=== PATIENT | male | born 1970 | race Caucasian/White ===

== ENCOUNTER 2017-10-20 21:13 | Emergency (ER) | payer BC, MEDICAID, SELFPAY ==
[2017-10-20 21:14] VITALS: BP 102/67; PULSE 114; RESP 24; TEMP 38.7; O2SAT 95; BMI 24.6
--- NOTE | 2017-10-20 22:49 | ED.RN ---
CALLED FOR PT X3. UNABLE TO LOCATE IN THE DEPARTMENT OR OUTSIDE.
== END 2017-10-20 22:49 | disposition left against medical advice (07) ==
LOC: ED 23:40
PROVIDERS: Emergency Provider Emergency Medicine; Family Provider Family Medicine
DX: R11.2 Nausea with vomiting, unspecified (principal)

== ENCOUNTER 2017-10-31 01:01 | Emergency (ER) | payer SELFPAY ==
[2017-10-31 01:02] VITALS: BP 113/60; PULSE 96; RESP 20; TEMP 36.8; O2SAT 99; BMI 24.7
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
[2017-10-31] MEDS: HYDROcodone Bitartrate/Apap 5/325 Tablet PO ×2 (01:19→02:14)
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
[2017-10-31 02:17] VITALS: BP 110/60; PULSE 78; RESP 18
== END 2017-10-31 02:18 | disposition home or self-care (01) ==
PROVIDERS: Emergency Provider Emergency Medicine
DX: S00.83XA Contusion of other part of head, initial encounter (principal); S20.211A Contusion of right front wall of thorax, initial encounter; Z72.0 Tobacco use; Y04.2XXA Assault by strike against or bumped into by another person, initial encounter; Y93.89 Activity, other specified; Y92.89 Other specified places as the place of occurrence of the external cause; Y99.8 Other external cause status
CPT/HCPCS: 70450; 71101; 72040; 99283

== ENCOUNTER → 2019-06-19 10:57 | Outpatient (CLI) | payer MEDICAID, SELFPAY ==
--- NOTE | 2019-06-19 17:56 | STRESSREP ---
Stress Test Report Treadmill EKG: Resting EKG: Normal sinus rhythm, normal axis, normal intervals, no evidence of previous myocardial infarction. Treadmill EKG: The patient exercised according to Bebo protocol for 12 minutes and 0 seconds achieving a maximum workload of 13.70 METS. The resting heart rate was 74 beats a minute and jim to max of 166 beats a minute which represents 95% of the maximal age picked at heart rate. Resting blood pressure is 110/80 and jim to max of 142/70. Test was terminated due to the attainment target heart rate. During exercise the patient's heart rate increased as expected. Patient had no dynamic EKG changes to suggest ischemia. No arrhythmias noted. Conclusions normal adequate treadmill EKG. Negative for ischemia by EKG criteria. No anginal symptoms noted. No arrhythmias noted. Average exercise capacity for age. Appropriate blood pressure response to exercise. Test terminated due to the attainment of target heart rate. Patient tolerated the procedure well. No complications.
== END ==
PROVIDERS: Referring Provider Nurse Practitioner Primary Care; Visit Provider Nurse Practitioner Primary Care
DX: R07.9 Chest pain, unspecified (principal); R06.02 Shortness of breath
CPT/HCPCS: 93017

== ENCOUNTER 2020-02-18 16:42 | Emergency (ER) | payer MEDICAID, SELFPAY ==
[2020-02-18 16:43] VITALS: BP 109/62; PULSE 70; PULSE 75; RESP 18; TEMP 36.1; O2SAT 97; BMI 25.2
--- NOTE | 2020-02-18 17:14 | ED.VIS.GEN ---
History of Present Illness Chief Complaint: Upper Extremity Injury Informant: Patient Narrative: Patient is a 49-year-old previously healthy male who presents to the emergency department for acute on chronic exacerbation of his right shoulder pain. Has been going on for multiple years. He has an appointment with orthopedic surgery at the end of the month but he states that the pain was just getting worse. He has been taking Tylenol for this which has not been giving him any relief. Denies any trauma or inciting event which spurred the new onset. It has been present over the past 2 days. The pain is on the right side of his neck and goes into his right shoulder. He does occasionally get shooting pain down the right arm to the elbow. Denies any neck pain. Moving the arm makes his symptoms worse. He was given a brace by his previous doctor which he has been wearing. He states he has previously gotten cortisone shots in the shoulder as well. Denies any loss of sensation in the hand or arm. He denies any joint swelling. No fevers or chills. No overlying skin changes. Denies any systemic symptoms. No chest pain or shortness of breath. He states he previously has had imaging done of the shoulder. Past Medical History - Allergies and Home Meds Allergies/Adverse Reactions: Allergies Penicillins Allergy (Verified 02/18/20 16:42) Unknown Primary Care Physician: Care Physician,No Primary [Primary Care Provider] - Prior records reviewed: Yes Past Medical History: None Smoking Status: Current every day smoker Alcohol: None Drugs: None Review of Systems All systems negative except as indicated General: Denies: Chills, Fever, Sweats Eyes: Denies: Visual changes - bilaterally, Diplopia ENT: Denies: Rhinorrhea, Sore throat Cardiovascular: Denies: Chest pain, Palpitations Respiratory: Denies: Dyspnea, Cough, Dyspnea on exertion Gastrointestinal: Denies: Abdominal pain, Nausea, Vomiting Genitourinary: Denies: Dysuria, Hematuria, Frequency Musculoskeletal: Reports: Neck pain - Right-sided, Extremity Pain - Right shoulder. Denies: Back pain Skin: Denies: Rash, Wounds Neurological: Denies: Headache, Weakness, Numbness Physical Exam Vital Signs/Narrative: Vital Signs Temp Pulse Resp BP Pulse Ox 02/18/20 16:43 96.9 F L 75 18 109/62 97 Inital Vital Signs reviewed: Yes General: Well nourished, Well developed, No Acute Distress Head: Normocephalic, Atraumatic Eyes: Perrl, EOMI ENT: Moist mucous membranes, No rhinorrhea Neck: Supple, Nontender Cardiovascular: Regular rate, Regular rhythm, No murmurs Respiratory: No distress, CTA bilaterally, Chest nontender Abdomen: Soft, Nontender, Nondistended Back: Nontender, Normal Inspection Extremities: No edema, - - Right arm has tight right trapezius muscle. He does have significant pain with light palpation over the muscle. Also pain over the anterior lateral shoulder. 2+ radial pulse. Good pediatric immunologist strength bilaterally. Has pain when abducting the arm past 90 degrees. Able to lower the shoulder slowly. No pain with compression of neck. Skin: Normal color, No rash Neurological: Alert, Oriented x3, Normal Strength, Normal Sensation Psychological: Normal affect, Normal Mood Diagnostic/Tx/Re-eval - Medical Decision Making Patient presents to the emergency department for nontraumatic acute on chronic right shoulder pain. He is neurovascularly intact. No joint effusion. No concern for septic arthritis. Vital signs within normal limits upon arrival. Will recommend symptomatic treatment until he can follow-up with his orthopedic surgeon later this month. Will prescribe Flexeril and Naprosyn to take along with his Tylenol. We will give a dose of Toradol here in the ED. At this time will discharge home in stable condition. He was warned that the Flexeril can make him tired and should not operate heavy machinery while on this. He understands and is agreeable with this plan. ED Disposition - Plan for ED Patient: Disposition: Home or Assisted Living Diagnosis: Chronic right shoulder pain Instructions: ED Shoulder Pain Uncertain Cause Prescriptions: cycloBENZAPRine HCl [Flexeril] 10 mg PO TID PRN 4 Days #12 tab PRN Reason: Muscle Spasm Transmission Status: Pending to [id number] Naproxen [Naprosyn] 500 mg PO BID PRN #40 tab Transmission Status: Pending to [id number] Referrals: Care Physician,No Primary [Primary Care Provider] - Zana Urias III, MD [STAFF PHYSICIAN] - 3-5 Days if not improving
[2020-02-18] MEDS: Ketorolac 30 MG/ML Syringe IM (18:16)
== END 2020-02-18 18:22 | disposition home or self-care (01) ==
LOC: ED 17:20
PROVIDERS: Emergency Provider Emergency Medicine
DX: G89.29 Other chronic pain (principal); M25.511 Pain in right shoulder; F17.200 Nicotine dependence, unspecified, uncomplicated
CPT/HCPCS: 96372; 99283

== ENCOUNTER 2020-10-28 14:35 | Emergency (ER) | payer MEDICAID, SELFPAY ==
[2020-10-28 14:36] VITALS: BP 120/65; PULSE 93; RESP 18; TEMP 36.7; O2SAT 100; BMI 25.1
--- NOTE | 2020-10-28 14:47 | ED.DCSUM_ITS ---
History of Present Illness Chief Complaint: Upper Extremity Injury Informant: Patient Narrative: 50-year-old male with history of right shoulder pain previously presenting for evaluation of right shoulder pain. Apparently this is acute on chronic issue. Patient had previously been to the emergency room and had images and reports the history of a Luigi-Sachs lesion. He was supposed to follow-up previously with orthopedics he went to his primary care doctor who put him through health and physical education teacher apy and gave him a referral to orthopedics given that he was not improving significantly. Yesterday he was throwing a softball with his daughter and felt a pop and now has pain in the right shoulder again. He denies paresthesias. He points to his deltoid on the right. Past Medical History - Allergies and Home Meds Allergies/Adverse Reactions: Allergies Penicillins Allergy (Verified 10/28/20 14:38) Unknown Primary Care Physician: Care Physician,No Primary [NON-STAFF] - Prior records reviewed: Yes Past Medical History: - - Denies significant medical history Surgical History: noncontributory Lives: Spouse/ Significant Other Smoking Status: Current every day smoker Alcohol: None Drugs: None Review of Systems General: Denies: Chills, Fever, Sweats Eyes: Denies: Visual changes - bilaterally, Diplopia ENT: Denies: Rhinorrhea, Sore throat Cardiovascular: Denies: Chest pain, Palpitations Respiratory: Denies: Dyspnea, Cough, Dyspnea on exertion Gastrointestinal: Denies: Abdominal pain, Nausea, Vomiting, Diarrhea, Melena, Hematochezia Genitourinary: Denies: Dysuria, Hematuria, Frequency Musculoskeletal: Reports: Extremity Pain - Right shoulder pain Skin: Denies: Rash, Wounds Neurological: Denies: Headache, Weakness, Numbness Psych: Denies: Depression, Anxiety, Suicidal thoughts, Suicidal ideations, -, - Physical Exam Vital Signs/Narrative: Vital Signs Temp Pulse Resp BP Pulse Ox 10/28/20 14:36 98.0 F 93 18 120/65 100 Inital Vital Signs reviewed: Yes General: Well nourished, No Acute Distress Head: Normocephalic, Atraumatic Eyes: Perrl, EOMI ENT: Moist mucous membranes, No rhinorrhea Cardiovascular: Regular rate, Regular rhythm Respiratory: No distress, CTA bilaterally Back: Nontender, Normal Inspection Extremities: - - To palpation over the right deltoid superiorly. There is no obvious deformity of the right shoulder. Patient is neurovascularly intact distally. Limited exam because patient does not want to move his arm secondary to pain. Skin: Normal color, Trauma Neurological: Alert, Oriented x3 Psychological: Normal affect, Normal Mood Diagnostic/Tx/Re-eval Clinical Impression(s) from Imaging Studies Shoulder X-Ray 10/28/20 14:50 IMPRESSION: Normal x-ray examination of the shoulder. Electronically Signed: Silvestre Burgess MD at 15:11 EDT , Service support , - Medical Decision Making 10-year-old male presenting with right shoulder pain. He has limited range of motion secondary to pain. He did not appear to be dislocated. He was given a shot of Toradol IM and I did obtain 2 views of the right shoulder which showed no acute bony process as interpreted by myself and radiology does agree. Patient counseled to follow-up with his orthopedic surgeon. He is counseled on alternating Profen and Tylenol. A shoulder as needed. Patient discharged home in stable condition Impression: 1. Right shoulder strain ED Disposition - Plan for ED Patient: Disposition: Home or Assisted Living Instructions: ED Shoulder Sprain Referrals: Care Physician,No Primary [NON-STAFF] -
--- NOTE | 2020-10-28 14:50 | RAD_ITS ---
STUDY: X-RAY - RIGHT SHOULDER REASON FOR EXAM: Male, 50 years old. Right shoulder pain TECHNIQUE: 2 view(s) of the shoulder. COMPARISON: None. FINDINGS: Normal glenohumeral articulation. Normal acromioclavicular joint. Normal acromion. Normal humeral head and visualized proximal humerus. The soft tissue structures are unremarkable. Normal visualized pulmonary apex. RAD/Shoulder min 2 Views IMPRESSION: Normal x-ray examination of the shoulder. Electronically Signed: Silvestre Burgess MD at 15:11 EDT , Service support ,
[2020-10-28] MEDS: Ketorolac 15 MG/ML Vial IM (14:52)
== END 2020-10-28 16:06 | disposition home or self-care (01) ==
PROVIDERS: Emergency Provider Student in an Organized Health Care Education/Training Program; PCP Physician Assistant
DX: S46.911A Strain of unspecified muscle, fascia and tendon at shoulder and upper arm level, right arm, initial encounter (principal); F17.200 Nicotine dependence, unspecified, uncomplicated; X50.3XXA Overexertion from repetitive movements, initial encounter; Y93.64 Activity, baseball; Y92.89 Other specified places as the place of occurrence of the external cause; Y99.8 Other external cause status
CPT/HCPCS: 73030; 96372; 99282

== ENCOUNTER 2020-11-27 10:22 | Outpatient (RCR) | payer MEDICAID, SELFPAY | END 2021-01-01 23:59 | LOC: IMMUN 10:22 | PROVIDERS: PCP Physician Assistant; Referring Provider Family Medicine; Visit Provider Family Medicine | DX: Z23 Encounter for immunization (principal) | CPT/HCPCS: 0001A; 91300 ==

== ENCOUNTER 2021-01-16 20:51 | Emergency (ER) | payer MEDICAID, SELFPAY ==
[2021-01-16 20:52] VITALS: BP 120/71; PULSE 92; RESP 16; TEMP 36.6; O2SAT 99; BMI 24.9
--- NOTE | 2021-01-16 21:24 | EDS_ITS ---
HPI History of Present Illness Chief Complaint: Allergic Reaction Informant: patient Narrative Narrative: 50-year-old male presents the emergency department following a sting of by an insect on his right proximal leg. He states this happened around 1600 hrs. He states that he had a white spot where he was stung about 30 minutes later it turned red. Now he notes a burning sensation going down his leg and he feels dizzy. He has not taken anything other than a little Bee sting stack to the envenomation site. No hives or shortness of breath. [facility] Medical History (Updated 01/16/21 @ 21:[address] Ishmael Solis DO) Knee meniscus pain Allergy/AdvReac Type Severity Reaction Status Date / Time Penicillins Allergy Unknown Verified 01/16/21 20:52 Surgical History (Updated 01/16/21 @ 21:[address] Ishmael Solis DO) H/O knee surgery History of surgery on arm Social History (Updated 01/16/21 @ 21:[address] Ishmael Solis DO) Smoking Status: Current every day smoker tobacco type: cigarettes substance use type: does not use ROS ROS ED Review of Systems ROS Unobtainable: other Constitutional Constitutional ED: Reports other Details: Dizziness ; Denies chills or weight loss Eyes Eyes: Denies change in vision or diplopia ENT ENT ED: Denies ear pain, rhinorrhea or sore throat Cardiovascular Cardiovascular: Denies chest pain, orthopnea, palpitations or racing heartbeat Respiratory/Chest Respiratory/Chest: Denies cough, dyspnea or orthopnea Gastrointestinal Gastrointestinal: Denies abdominal pain, diarrhea, nausea or vomiting Genitourinary Genitourinary ED: Denies dysuria, hematuria or urinary frequency Musculoskeletal Musculoskeletal: Reports other Details: Right leg pain ; Denies arthralgias or myalgias Integumentary Reports other Details: Bee sting site ; Denies abscess or rash Neurologic Neurologic: Denies headache(s) or weakness Psychiatric Psychiatric: Denies anxiety, depression, suicidal ideation or suicidal thoughts Endocrine Endocrinology: Denies polydipsia, polyphagia or polyuria Allergic/Immunologic Allergic/Immunologic ED: Denies mouth swelling, tongue swelling or urticaria EXAM Physical Exam Const Vital Signs: 01/16/21 20:52 Temperature 97.9 F Temperature Source Temporal Pulse Rate 92 Respiratory Rate 16 Blood Pressure 120/71 Blood Pressure Mean 87 Pulse Ox 99 Oxygen Delivery Method Room Air Positive well nourished and well developed General Appearance ED: well developed HEENT Reports normocephalic, head/scalp atraumatic and moist mucous membranes Eyes PERRL and EOMs intact bilaterally Neck no lymphadenopathy, supple and no JVD Resp normal respiratory effort and clear to auscultation bilaterally Cardio regular rate, regular rhythm and no murmurs GI normal to inspection, nondistended, normoactive bowel sounds and non-tender Palpation: soft Back/Spine no CVA tenderness and normal ROM Extremity Extremity Narrative: Tenderness medial proximal right leg. At the site of the envenomation. There is some mild erythema. General Extremety ED: Yes tenderness; Negative for edema General Extremity: Negative for edema Neuro oriented x3 and CN's II-XII intact bilaterally Sensorium / Orientation: alert Motor Exam: strength 5/5 throughout Psych mental status grossly normal Mood & Affect: Negative for depressed or tearful Skin no rashes or lesions noted Skin Narrative: No hives MDM MDM MDM Narrative Medical decision making narrative: Patient will be given a dose of Benadryl and given a dose of Kenalog. Continued Benadryl at home. Return if worsening or concerns. Discharge Plan Triage Chief Complaint: Allergic Reaction ED Provider: Ishmael Solis Dx/Rx/DC Orders Clinical Impression: Accidental insect sting Instructions: ED Insect Sting, Local Reaction Primary Care Provider: Patel Rene Referrals: Patel Rene PA [Primary Care Provider] - As Needed Activity Restrictions/Additional Instructions: Benadryl 25 mg every 6 hours until reaction is resolved Disposition Disposition: Home, Self Care
[2021-01-16] MEDS: Triamcinolone Acetonide 40 MG/ML Vial 80 MG IM (21:40)
[2021-01-16] MEDS: DiphenhydrAMINE 25 MG Capsule PO (21:40)
[2021-01-16 22:07] VITALS: BP 110/73; PULSE 83; RESP 15; O2SAT 96
== END 2021-01-16 22:09 | disposition home or self-care (01) ==
LOC: ED 21:34
PROVIDERS: Emergency Provider Emergency Medicine; PCP Physician Assistant
DX: T63.441A Toxic effect of venom of bees, accidental (unintentional), initial encounter (principal); R42 Dizziness and giddiness; F17.210 Nicotine dependence, cigarettes, uncomplicated
CPT/HCPCS: 96372; 99282

== ENCOUNTER 2021-03-01 21:39 | Emergency (ER) | payer MEDICAID, SELFPAY ==
[2021-03-01 21:39] VITALS: BP 111/80; PULSE 78; RESP 18; TEMP 36.7; O2SAT 98; BMI 24.9
--- NOTE | 2021-03-01 21:43 | ED.RN ---
UPDATED TARA SURVEILLANCE OPERATOR NURSE WITH DATA, TRIAGE NORMAL.PT OUTSIDE LIMITS.
[2021-03-01 21:51] LABS: Bedside Glucose 90 mg/dL (70-110)
--- NOTE | 2021-03-01 22:23 | EKG12_ITS ---
Test Reason : DIZZINESS Blood Pressure : / mmHG Vent. Rate : 060 BPM Atrial Rate : 060 BPM P-R Int : 130 ms QRS Dur : 090 ms QT Int : 420 ms P-R-T Axes : 068 070 060 degrees QTc Int : 420 ms Normal sinus rhythm Normal ECG Confirmed by YVONNE FORREST, MERT ([id number]), editorial cartoonist HAILEY MAYA ([id number]) on 03/04/2021 10:24:29 AM Referred By: EMY Confirmed By:MERT RUSSELL MD
[2021-03-01 22:29] VITALS: BP 114/83; PULSE 65; RESP 22
[2021-03-01 22:43] VITALS: BP 114/83
[2021-03-01 22:51] LABS: Absolute Lymphocyte Count 4.04 X10^3/uL (0.83-4.51); Absolute Neutrophil Count 6.6 X10^3/uL (2.0-7.7); Basophil# 0.07 X10^3/uL; Basophil% 0.6 % (0-1); Eosinophil# 0.11 X10^3/uL; Eosinophils% 0.9 % (0-5); Hematocrit 46.6 % (40-54); Hemoglobin 15.3 g/dL (13.0-16.5); Lymphocyte # 4.04 X10^3/ul (0.83-4.51); Lymphocyte % 34.8 % (19-41); Mean Corp Hgb Conc 32.8 g/dL (32-36); Mean Corpuscular Hgb 30.4 pg (27.0-32.0); Mean Corpuscular Volume 92.6 fL (80-94); Mean Platelet Vol. 10.2 fl (6.2-12.0); Monocyte# 0.73 X10^3/uL; Monocyte% 6.3 % (0-10); NRBC Flagged by Analyzer 0 % (0-5); Neutrophil # 6.64 X10^3/uL (2.7-7.7); Neutrophil % 57.1 % (47-70); Platelet Count 262 K/mm3 (150-450); RBC Distribution Width CV 12.9 % (11.6-14.6); RBC Distribution Width SD 43.7 fl (35.1-43.9); Red Blood Count 5.03 M/mm3 (4.6-6.2); White Blood Count 11.6 K/mm3 (4.4-11.0)
--- NOTE | 2021-03-01 22:55 | RAD_ITS ---
EXAM: XR CHEST, 1 VIEW : 1970 CLINICAL INDICATION: Stroke TECHNIQUE: Frontal view of the chest. This report was created using C-Note report generation technology. COMPARISON: 04/05/2011 FINDINGS: LUNGS AND PLEURAL SPACES: Unremarkable. No consolidation or edema. No pneumothorax. No effusion. HEART: Unremarkable. Cardiac silhouette not enlarged. MEDIASTINUM: Central airways and mediastinal contour are unremarkable. BONES/JOINTS: Unremarkable. SOFT TISSUES: Unremarkable. RAD/Chest 1 View (Portable) IMPRESSION: No radiographic evidence of acute cardiopulmonary disease. at 2329 Reported and signed by: Chay Funk MD Electronically Signed: Chay Funk MD at 23:27 EDT Tel , Service support ,
[2021-03-01 22:56] VITALS: BP 107/74; PULSE 68; RESP 16
--- NOTE | 2021-03-01 22:59 | ED.RN ---
discontinue NIH's per dr. senior
[2021-03-01 23:00] VITALS: BP 107/74
[2021-03-01 23:01] LABS: Prothrombin Time (Protime)PT. 12.6 SECONDS (11.7-14.9)
[2021-03-01 23:17] LABS: Anion Gap 4 (5-15); BUN 15 mg/dL (7-18); BUN/Creat Ratio 12.6 RATIO (10-20); Calcium,Total 8.5 mg/dL (8.5-10.1); Chloride 106 mmol/L (98-107); Creatinine, Serum 1.19 mg/dL (0.70-1.30); EST Glomerular Filtration Rate 69 mL/min (>60); Est Glom Filt Rate - Afr Amer 84 mL/min (>60); Estimated Creatinine Clearance 80.85 ml/min; Glucose 79 mg/dL (74-106); Sodium Level 140 mmol/L (136-145)
--- NOTE | 2021-03-02 | EX.ED.DYSGE1 ---
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 Duration was 2 to 5 minutes. He had several episodes. He denied vomiting. He did complain of slight headache this morning. He denies ringing in his ears or decreased hearing. Denies trouble with speech or swallowing. He denies cardiac respiratory symptoms. He denies black or maroon-colored stool. He denies urinary symptoms. He denies paresthesia, anesthesia medics. He denies trouble walking. He has not noticed that he has been walking to one side. He denies problems with coordination. Prior similar symptoms: No Recent Illness/Hospitalization: No [facility] Medical History Knee meniscus pain Home Medications NK 03/01/21 [History Last Taken Unknown] Allergy/AdvReac Type Severity Reaction Status Date / Time Penicillins Allergy Unknown Verified 03/01/21 21:43 Surgical History H/O knee surgery History of surgery on arm Social History (Updated 03/02/21 @ 00:[address] Gabino Powell MD) household members: spouse and children Smoking Status: Current every day smoker tobacco type: cigarettes alcohol intake: current alcohol intake frequency: other substance use type: does not use ROS ROS ED Constitutional Constitutional ED: Denies chills, fever(s), subjective or sweats Eyes Eyes: Reports change in vision bilateral; Denies blurry vision or diplopia ENT ENT ED: Denies ear pain, rhinorrhea or sore throat Cardiovascular Cardiovascular: Denies chest pain, palpitations or racing heartbeat Respiratory/Chest Respiratory/Chest: Denies cough, dyspnea or dyspnea on exertion Gastrointestinal Gastrointestinal: Reports nausea; Denies abdominal pain, diarrhea or vomiting Genitourinary Genitourinary ED: Denies dysuria, hematuria or urinary frequency Musculoskeletal Musculoskeletal: Denies arthralgias, back pain, myalgias or neck pain Integumentary Denies abscess, Abrasions or rash Neurologic Neurologic: Reports headache(s); Denies paresthesias or weakness Psychiatric Psychiatric: Denies depression EXAM Physical Exam Const Vital Signs: 03/01/21 21:39 03/01/21 22:29 03/01/21 22:43 Temperature 98.0 F Temperature Source Temporal Pulse Rate 78 65 Respiratory Rate 18 22 H Blood Pressure 111/80 114/83 H 114/83 H Blood Pressure Mean 90 93 93 Pulse Ox 98 Oxygen Delivery Method Room Air 03/01/21 22:56 03/01/21 23:00 Temperature Temperature Source Pulse Rate 68 Respiratory Rate 16 Blood Pressure 107/74 107/74 Blood Pressure Mean 85 85 Pulse Ox Oxygen Delivery Method Positive well nourished and well developed General Appearance ED: well developed and NAD HEENT Reports TM's clear and moist mucous membranes HEENT Narrative: Head is atraumatic normocephalic. TMs are normal. External auditory canal normal. Posterior pharynx no erythema or exudate. Uvula is midline. Tympanic Membrane ED: Yes TM's clear Eyes PERRL and EOMs intact bilaterally General Eye ED: Negative for pale conjunctiva or scleral icterus Neck no lymphadenopathy, supple and no JVD Chest Wall inspection of chest normal Resp normal respiratory effort and clear to auscultation bilaterally Cardio regular rate, regular rhythm, S1 normal heart sound, S2 normal heart sound and no murmurs GI normal to inspection, nondistended, normoactive bowel sounds and non-tender Palpation: soft Back/Spine no CVA tenderness Extremity normal to inspection General Extremety ED: Negative for edema or tenderness General Extremity: Negative for edema Neuro oriented x3, CN's II-XII intact bilaterally and no sensory deficits noted Neuro Narrative: The eye askew test was negative. The hint test was negative. There is no dysmetria. Gait was normal. Montserrat-Hallpike maneuver was positive left greater than right. Nystagmus is noted when his head was to the right. Sensorium / Orientation: alert Motor Exam: strength 5/5 throughout Psych mental status grossly normal Skin no rashes or lesions noted and no wounds MDM MDM MDM Narrative Medical decision making narrative: With transient episodes and positive Montserrat-Hallpike maneuver with normal neuro exam Silas maneuver was performed. Patient had symptoms of the right and had nystagmus noted when he was to the right. His nystagmus and symptoms resolved. Lab Data Attestation: I reviewed the patient's lab results. Lab results narrative: Blood work was obtained per nurse per and is unremarkable. Labs: Laboratory Results - last 24 hr 03/01/21 03/01/21 03/01/21 21:44 22:37 22:37 WBC 11.6 H RBC 5.03 Hgb 15.3 Hct 46.6 MCV 92.6 MCH 30.4 MCHC 32.8 RDW Std Deviation 43.7 RDW Coeff of Shahbaz 12.9 Plt Count 262 MPV 10.2 Immature Gran % (Auto) 0.300 Neut % (Auto) 57.1 Lymph % (Auto) 34.8 [place] % (Auto) 6.3 Eos % (Auto) 0.9 Baso % (Auto) 0.6 Absolute Neuts (auto) 6.6 Absolute Lymphs (auto) 4.04 Nucleated RBC % 0 PT 12.6 INR 1.0 Sodium Potassium Chloride Carbon Dioxide Anion Gap BUN Creatinine Estim Creat Clear Calc Est GFR (MDRD) Af Amer Est GFR (MDRD) Non-Af BUN/Creatinine Ratio Glucose Calcium POC Glucose 90 03/01/21 22:37 WBC RBC Hgb Hct MCV MCH MCHC RDW Std Deviation RDW Coeff of Shahbaz Plt Count MPV Immature Gran % (Auto) Neut % (Auto) Lymph % (Auto) [place] % (Auto) Eos % (Auto) Baso % (Auto) Absolute Neuts (auto) Absolute Lymphs (auto) Nucleated RBC % PT INR Sodium 140 Potassium 4.0 Chloride 106 Carbon Dioxide 30.0 Anion Gap 4 L BUN 15 Creatinine 1.19 Estim Creat Clear Calc 80.85 Est GFR (MDRD) Af Amer 84 Est GFR (MDRD) Non-Af 69 BUN/Creatinine Ratio 12.6 Glucose 79 Calcium 8.5 POC Glucose Radiography Diagnostic Testing: Radiology Impression Chest X-Ray 03/01/21 22:55 IMPRESSION: No radiographic evidence of acute cardiopulmonary disease. at 2329 Reported and signed by: Chay Funk MD Electronically Signed: Chay Funk MD at 23:27 EDT Tel , Service support , Discharge Plan Triage Chief Complaint: Dizziness ED Provider: Gabino Powell Dx/Rx/DC Orders Clinical Impression: Benign paroxysmal positional vertigo of left ear Instructions: ED BPV Vertigo Prescriptions: No Action NK RF: 0 Primary Care Provider: Patel Rene Referrals: Patel Rene, PA [Primary Care Provider] - As Needed Disposition Disposition: Home, Self Care
[2021-03-02 00:28] VITALS: BP 104/84; PULSE 71; RESP 18; O2SAT 98
== END 2021-03-02 00:57 | disposition home or self-care (01) ==
PROVIDERS: Emergency Provider Emergency Medicine; PCP Physician Assistant
DX: H81.12 Benign paroxysmal vertigo, left ear (principal); F17.210 Nicotine dependence, cigarettes, uncomplicated
CPT/HCPCS: 71045; 80048; 82962; 85025; 85610; 93005; 99284; A4216

== ENCOUNTER → 2021-04-24 08:03 | Outpatient (CLI) | payer OTHER, MEDICAID, SELFPAY ==
--- NOTE | 2021-04-24 09:02 | MRI_ITS ---
STUDY: MRI RIGHT SHOULDER REASON FOR EXAM: Right shoulder instability, right shoulder dislocation. TECHNIQUE: Standardized fat and water weighted pulse sequences were obtained in all 3 orthogonal planes. COMPARISON: Radiographs 10/28/2020. FINDINGS: There is supraspinatus tendinosis and a small linear intermediate grade partial-thickness tear of the articular surface of the distal posterior supraspinatus tendon (T2 coronal image 16). There is mild infraspinatus tendinosis (T2 coronal image 12) without discrete tendon tear Normal subscapularis tendon. Normal teres minor tendon. There is mild atrophy with mild partial fat replacement of the supraspinatus muscle (T2 axial image 8). Normal infraspinatus muscle. Normal subscapularis muscle. There is atrophy with partial fat replacement of the teres minor muscle (T2 sagittal images 17-28). Normal glenohumeral articulation. There is mild cystic change of the posterior aspect of the greater tuberosity. Normal biceps labral complex. Normal intracapsular long biceps tendon. Normal labrum. Normal capsulo- ligamentous complex. There is mild acromioclavicular arthrosis without substantial undersurface osteophytes (T2 sagittal images 17, 18). There is a Type II morphology (curved), with a neutral orientation. There is a small volume of subacromial-subdeltoid bursal fluid (proton-density axial images 14-18). Normal visualized coracohumeral and coracoacromial ligaments. Normal deltoid muscle. Normal trapezius muscle. MRI/Upper Ext Joint Only(Routine) IMPRESSION: Small linear partial-thickness tear and tendinosis of the supraspinatus tendon. Mild infraspinatus tendinosis. Mild atrophy of the supraspinatus muscle, and atrophy of the teres minor muscle. Mild acromioclavicular arthrosis. Mild subacromial-subdeltoid bursitis. Electronically Signed: Guillermo Tao MD at 9:25 EDT Tel , Service support ,
== END ==
PROVIDERS: PCP Physician Assistant; Referring Provider Physician Assistant; Visit Provider Physician Assistant
DX: M25.311 Other instability, right shoulder (principal)
CPT/HCPCS: 73221

== ENCOUNTER → 2021-08-09 16:30 | Day surgery (SDC) | payer OTHER, MEDICAID, SELFPAY ==
--- NOTE | 2021-08-09 16:34 | EKG12_ITS ---
Test Reason : PRE OP Blood Pressure : / mmHG Vent. Rate : 081 BPM Atrial Rate : 081 BPM P-R Int : 126 ms QRS Dur : 086 ms QT Int : 362 ms P-R-T Axes : 063 061 053 degrees QTc Int : 420 ms Normal sinus rhythm Normal ECG Confirmed by YVONNE FORREST, MERT ([id number]), legal editor HAILEY MAYA ([id number]) on 08/10/2021 8:34:13 AM Referred By: Kevan Mehta Confirmed By:MERT RUSSELL MD
[2021-08-09 17:30] LABS: Hematocrit 45.5 % (40-54); Hemoglobin 15.5 g/dL (13.0-16.5); Mean Corp Hgb Conc 34.1 g/dL (32-36); Platelet Count 284 K/mm3 (150-450); RBC Distribution Width CV 12.3 % (11.6-14.6); RBC Distribution Width SD 40.9 fl (35.1-43.9)
[2021-08-09 19:43] LABS: Anion Gap 4 (5-15); BUN 13 mg/dL (7-18); BUN/Creat Ratio 10.9 RATIO (10-20); Calcium,Total 8.8 mg/dL (8.5-10.1); Chloride 104 mmol/L (98-107); Creatinine, Serum 1.19 mg/dL (0.70-1.30); EST Glomerular Filtration Rate 69 mL/min (>60); Est Glom Filt Rate - Afr Amer 83 mL/min (>60); Glucose 74 mg/dL (74-106); Potassium 3.5 mmol/L (3.5-5.1); Sodium Level 139 mmol/L (136-145)
== END ==
PROVIDERS: Physician Assistant; PCP Physician Assistant; Referring Provider Orthopaedic Surgery; Visit Provider Orthopaedic Surgery
DX: Z01.812 Encounter for preprocedural laboratory examination (principal)
CPT/HCPCS: 36415; 80048; 85027; 93005

== ENCOUNTER 2021-10-05 16:12 | Outpatient (CLI) | payer OTHER, MEDICAID, SELFPAY ==
--- NOTE | 2021-10-05 16:16 | VDUE_ITS ---
Reason For Study: pain Right Proximal Right jugular vein is spontaneous, widely patent, phasic, with no intraluminal echogenicity noted. Right subclavian vein is spontaneous, widely patent, phasic, with no intraluminal echogenicity noted. Right Lower Arm Right radial vein is compressible. Right ulnar vein is compressible. Right Arm Right axillary vein is spontaneous, patent, phasic, competent, compressible and demonstrates augmentation. Right brachial vein is compressible. Right cephalic vein is compressible. Right basilic vein is compressible. Prelim faxed to Dr. Mehta. VL/Venous Duplex US, Unilateral Interpretation Summary No evidence for acute deep venous thrombosis[right] upper extremity with patent and compressible cephalic and basilic veins. Ordering Physician: Kevan Mehta Performed By: Luis Rodrigues RVSeveriano ?
== END 2021-10-05 23:59 | disposition home or self-care (01) ==
LOC: CVS 16:13
PROVIDERS: PCP Physician Assistant; Referring Provider Orthopaedic Surgery; Visit Provider Orthopaedic Surgery
DX: S46.011D Strain of muscle(s) and tendon(s) of the rotator cuff of right shoulder, subsequent encounter (principal); M79.601 Pain in right arm
CPT/HCPCS: 93971

== ENCOUNTER → 2022-05-27 | Outpatient (CLI) | payer OTHER, MEDICAID, SELFPAY ==
[2022-05-27 17:47] LABS: Hematocrit 49.6 % (40-54); Hemoglobin 16.2 g/dL (13.0-16.5); Mean Corp Hgb Conc 32.7 g/dL (32-36); Mean Corpuscular Hgb 30.3 pg (27.0-32.0); Mean Corpuscular Volume 92.9 fL (80-94); Mean Platelet Vol. 11.4 fl (6.2-12.0); Platelet Count 294 K/mm3 (150-450); RBC Distribution Width CV 12.6 % (11.6-14.6); RBC Distribution Width SD 43.3 fl (35.1-43.9); Red Blood Count 5.34 M/mm3 (4.6-6.2); White Blood Count 13.8 K/mm3 (4.4-11.0)
[2022-05-27 18:08] LABS: Anion Gap 4 (5-15); BUN 14 mg/dL (7-18); BUN/Creat Ratio 11.9 RATIO (10-20); Calcium,Total 8.5 mg/dL (8.5-10.1); Chloride 102 mmol/L (98-107); Creatinine, Serum 1.18 mg/dL (0.70-1.30); EST Glomerular Filtration Rate 69 mL/min (>60); Est Glom Filt Rate - Afr Amer 84 mL/min (>60); Glucose 94 mg/dL (74-106); Potassium 3.6 mmol/L (3.5-5.1); Sodium Level 136 mmol/L (136-145)
== END | disposition home or self-care (01) ==
LOC: MTLAB 16:05
PROVIDERS: PCP Physician Assistant; Referring Provider Orthopaedic Surgery; Visit Provider Orthopaedic Surgery
DX: Z01.818 Encounter for other preprocedural examination (principal); Z01.810 Encounter for preprocedural cardiovascular examination
CPT/HCPCS: 36415; 80048; 85027

== ENCOUNTER → 2023-06-09 | Outpatient (CLI) | payer OTHER, MEDICAID, SELFPAY ==
--- NOTE | 2023-06-09 17:50 | CT_ITS ---
CT RIGHT LOWER EXTREMITY CLINICAL INDICATION: DILEEP TECHNIQUE: Axial CT images of the RIGHT lower extremity was performed without IV contrast material. Coronal and sagittal reformats were provided. RADIATION DOSAGE (If Supplied By Facility): CTDIvol = ( 18.66 ) mGy, DLP = ( 1220.74 ) mGycm COMPARISON: No relevant prior comparison study available FINDINGS: Bones: The hip is well aligned. The joint space is maintained. The right hemipelvis is intact. The right knee is well aligned. There is mild medial compartment joint space narrowing. Small tricompartmental marginal osteophytes. Chondrocalcinosis at the medial and lateral compartments. Alignment at the ankle is appropriate. Os trigonum noted. Mild sclerosis and cyst formation along the middle subtalar joint. Possible fibrous coalition at this location.. Soft Tissues: The deep soft tissue structures are unremarkable. The superficial soft tissues are unremarkable without evidence of edema, hematoma, or foreign body. CT/Extremity Lower without Contra IMPRESSION: Appropriate alignment of the right hip, knee, and ankle. Mild tricompartmental degenerative change of the knee with chondrocalcinosis. Electronically Signed: Donnell Sheikh MD at 0:28 EST ,
== END | disposition home or self-care (01) ==
LOC: CT 17:48
PROVIDERS: PCP Physician Assistant; Visit Provider Specialist
DX: M17.11 Unilateral primary osteoarthritis, right knee (principal)
CPT/HCPCS: 73700

== ENCOUNTER 2023-06-28 06:05 | Day surgery (SDC) | payer OTHER, MEDICAID, SELFPAY ==
[2023-06-05 16:24] LABS: Absolute Lymphocyte Count 2.93 X10^3/uL (0.83-4.51); Absolute Neutrophil Count 9.6 X10^3/uL (2.0-7.7); Basophil# 0.07 X10^3/uL; Basophil% 0.5 % (0-1); Eosinophil# 0.08 X10^3/uL; Eosinophils% 0.6 % (0-5); Hematocrit 50.8 % (40-54); Hemoglobin 16.4 g/dL (13.0-16.5); Lymphocyte # 2.93 X10^3/ul (0.83-4.51); Lymphocyte % 21.8 % (19-41); Mean Corp Hgb Conc 32.3 g/dL (32-36); Mean Corpuscular Hgb 30.4 pg (27.0-32.0); Mean Corpuscular Volume 94.1 fL (80-94); Mean Platelet Vol. 10.9 fl (6.2-12.0); Monocyte# 0.74 X10^3/uL; Monocyte% 5.5 % (0-10); NRBC Flagged by Analyzer 0 % (0-5); Neutrophil # 9.56 X10^3/uL (2.7-7.7); Neutrophil % 71.3 % (47-70); Platelet Count 314 K/mm3 (150-450); RBC Distribution Width CV 12.4 % (11.6-14.6); RBC Distribution Width SD 43.1 fl (35.1-43.9); White Blood Count 13.4 K/mm3 (4.4-11.0)
[2023-06-05 16:48] LABS: Albumin, Serum 3.6 g/dL (3.2-5.0); Anion Gap 5 (5-15); BUN 10 mg/dL (7-18); BUN/Creat Ratio 8.5 RATIO (10-20); Calcium,Total 8.7 mg/dL (8.5-10.1); Chloride 105 mmol/L (98-107); Creatinine, Serum 1.18 mg/dL (0.70-1.30); EST Glomerular Filtration Rate 69 mL/min (>60); Est Glom Filt Rate - Afr Amer 84 mL/min (>60); Glucose 96 mg/dL (74-106); Magnesium 2.4 mg/dL (1.6-2.6); Potassium 3.6 mmol/L (3.5-5.1); Sodium Level 141 mmol/L (136-145)
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
[2023-06-28] VITALS (11 sets, daily range): BP systolic 87–115; BP diastolic 56–76; PULSE 66–95; RESP 16–20; TEMP 36.2–37.4; O2SAT 90–100; BMI 25.2
--- NOTE | 2023-06-28 | KNEE_PTH ---
PATHOLOGY RESULTS PATIENT: ALLEN PEREZ Jr. LOC: [facility] [place] U[place][id number] AGE/SX: 53/M ROOM: RE06/28/[address]: Dr. Kareem Purcell MD : 1970 BED: DIS: 06/28/2023 SPEC #: [id number] RECD: 06/28/23 13:53 STATUS: MAKAYLA REQ #: [id number] ARMINDA: 06/28/23 00:[address]: Kareem Purcell DEPT: SURGICAL PATHOLOGY RECD BY: Aubrey Yee ENTERED: 06/28/23 13:53 SP TYPE: TOTAL KNEE OTHR DR: SHELLY Villalobos Tissues: Knee, NOS Procedures: Decalcification bone/plaque Surgery Specimen Level IV HEADER OPERATION: ARIEL Robotic assisted right total knee replacement PRE-OP DIAGNOSIS: Right knee osteoarthritis TISSUE SUBMITTED: Right knee bone and tissue MICROSCOPIC DIAGNOSIS Bone and tissue, right knee, total knee replacement/resection: Pieces of bone with mild degenerative osteoarthritic changes. Fibroadipose tissue, fibroconnective tissue and reactive synovial tissue. LIZY:ed 07/05/2023 MICROSCOPIC DESCRIPTION Slides are reviewed. GROSS DESCRIPTION Received is one container designated bone and soft tissue right knee. The specimen consists of multiple fragments of bell-yellow bone measuring in aggregate 9.5 x 11.0 x 3.5 cm. Also in the specimen container are multiple fragments of yellow-white soft tissue measuring in aggregate 8.0 x 6.0 x 3.0 cm. A number of bony fragments contain articular surfaces consistent with tibial plateau and femoral condyle and displaying prominent osteophyte formation and bone erosion. Sign Writer Hand sections are submitted in two cassettes as follows: 1 - soft tissue, 2 - bone after decalcification. / LIZY:ed 06/28/2023 More sections are submitted in cassette #3 after decalcification. /SJ: 07/05/23 TC:5 CPT: 47202, 19539
[2023-06-28] MEDS: Lactated Ringers 1,000 ML 999 ML IV ×2 (06:00→09:31)
--- OUTSIDE RECORDS SUMMARY | 2023-06-28 06:10 | XMS RPT_ITS | CCD ---
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 Distillery Supervisor Name Role Phone DOMINGA ADAIR Referring Unavailable ERIK ORTIZ Admitting Tabitha vailable DOUGLAS CHÁVEZ Consulting Unavai lable SYSTEM, PROVIDER NOT IN Primary Care Unavaila ble ERIK ORTIZ Attending Tabitha vailable System, Provider Not In Primary Care Provider Un available Patle Rene PA-C Primary Care Provider [phone] Patel Rene PA-C Primary Care Provider [phone] Patel Rene PA-C Primary Care Provider [phone] Patel RENE Attending Unavailable Patel RENE Primary Care Unavailable Patel RENE Attending Unavailable Patel RENE Primary Care Unavailable Patel RENE Attending Unavailable Patel RENE Primary Care Unavailable Patel RENE Referring Unavailable Patel RENE Primary Care Unavailable Patel RENE Referring Unavailable Patel RENE Primary Care Unavailable Patel RENE Attending Unavailable SELF Referring Unavailable Patel RENE Primary Care Unavailable Allergies Allergy Classification Reported Allergen(s) Allergy Type Date of Onset Reaction(s) Facility (2 sources) Penicillin; Translations: [Unknown] Drug Allergy 9 [facility] (2 sources) Penicillins; Translations: [PENICILLINS] Propensity to adverse reactions 8 [facility] (7 sources) Penicillins Propensity to adverse reactions 8 [facility] Medications Current Medications Medication Drug Class(es) Dates Sig (Normalized) Sig (Original) famotidine 20 mg oral tablet (1 source) Histamine-2 Receptor Antagonist Start: 01-09-2019 End: 02-08-2019 take 1 tablet by mouth once daily famotidine (PEPCID) 20 MG tablet Take 1 (one) tablet (20 mg total) by mouth daily . 30 tablet 0 01/09/2019 02/08/2019 Active imiquimod 50 mg/ml topical cream (1 source) Start: 12-29-2022 End: 01-28-2023 imiquimod (ALDARA) 5 % cream Indications: Genital warts Apply 1 Packet to affected area daily at bedtime. 12 Each 0 12/29/2022 01/28/2023 Active Completed/Discontinued Medications Medication Drug Class(es) Dates Sig (Normalized) Sig (Original) acetaminophen 325 mg oral tablet (1 source) Start: 01-08-2019 End: 01-09-2019 take 1 tablet by mouth every four hours as needed 650 mg, Oral, Every 4 hours PRN, mild pain, fever 100.4 F or greater, headaches, Starting Mon01/08/19 at 1122 [id number] 200 actuat albuterol 0.09 mg/actuat metered dose inhaler (8 sources) beta2-Adrenergic Agonist Start: 06-18-2021 take 2 puff(s) by inhalation every four hours as needed albuterol HFA (PROAIR HFA) 90 mcg/actuation inhaler Indications: Cough , SOB (shortness of breath) Inhale 2 Puffs as instructed every 4 hours as needed. 1 Each 06/18/2021 Active Problems Active Problems Problem Classification Problem Date Documented Da te Episodic/Chronic Diseases of white blood cells (2 sources) Leukocytosis; Translations: [Elevated white blood cell count, unspecified] Onset: 06-21-2023 06-13-2023 Chronic Mood disorders (13 sources) Depressive disorder; Translations: [Depression] Onset: 10-31-2016 10-31-2016 Chronic Other acquired deformities (1 source) Hill-Sachs lesion; Translations: [Other specified acquired deformities of right upper arm] Episodic Other inflammatory condition of skin (1 source) Solar erythema; Translations: [Sunburn, unspecified] Episodic Substance-related disorders (11 sources) Caffeine-related disorder; Translations: [Other stimulant abuse, uncomplicated] Onset: 05-07-2021 05-07-2021 Chronic Past or Other Problems Problem Classification Problem Date Documented Date Episodic/Chronic Abdominal pain (1 source) Abdominal pain; Translations: [Abdominal pain] Onset: 01-08-2019 01-08-2019 Episodic Diabetes mellitus without complication (2 sources) Hyperglycemia; Translations: [Hyperglycemia, unspecified] Onset: 08-23-2022 Episodic Disorders of teeth and jaw (2 sources) Gingival abscess; Translations: [Aggressive periodontitis, localized, unspecified severity] Onset: 12-29-2022 Episodic Immunizations and screening for infectious disease (4 sources) Viral screening status; Translations: [Encounter for screening for other viral diseases] Onset: 12-29-2022 Episodic Joint disorders and dislocations; trauma-related (10 sources) Tear of meniscus of knee; Translations: [Unspecified tear of unspecified meniscus, current injury, unspecified knee, initial encounter] Onset: 05-14-2015 05-14-2015 Episodic Other acquired deformities (1 source) Other specified acquired deformities of right upper arm; Translations: [Hill Sachs deformity, right] Onset: 08-23-2022 Episodic Other non-traumatic joint disorders (8 sources) Pain in lower limb; Translations: [Pain in unspecified knee] Onset: 12-04-2014 12-04-2014 Episodic Other non-traumatic joint disorders (10 sources) Instability of right shoulder joint; Translations: [Other instability, right shoulder] Onset: 03-17-2020 05-01-2021 Episodic Other non-traumatic joint disorders (1 source) Other instability, right shoulder; Translations: [Instability of right shoulder joint] Onset: 05-01-2021 Episodic Other screening for suspected conditions (not mental disorders or infectious disease) (8 sources) Patient encounter status; Translations: [Encounter for screening for malignant neoplasm of colon] Onset: 12-29-2022 Episodic Residual codes; unclassified (9 sources) Tobacco use and exposure - finding; Translations: [Tobacco use] Onset: 05-29-2015 05-29-2015 Episodic Residual codes; unclassified (9 sources) History of arthroscopy of knee joint; Translations: [Other specified postprocedural states] Onset: 07-07-2015 07-07-2015 Episodic Residual codes; unclassified (1 source) Other specified postprocedural states; Translations: [S/P right knee arthroscopy] Onset: 07-07-2015 Episodic Residual codes; unclassified (1 source) Tobacco use; Translations: [Tobacco use] Onset: 05-29-2015 Episodic Viral infection (2 sources) Genital warts; Translations: [Anogenital (venereal) warts] Onset: 12-29-2022 Episodic Results Test Name Value Interpretation Reference Range Facil ity Vital Signs Date Time Vital Sign Value Performing Clinician Ky lity 06-13-2023 16:19-0500 Body weight 83.46 kg NA Rene PA-C Work Phone: [facility] 06-13-2023 16:19-0500 Diastolic blood pressure 60 mm[Hg] NA Rene PA-C Work Phone: [facility] 06-13-2023 16:19-0500 Heart rate 75 /min NA Rene PA-C Work Phone: [facility] 06-13-2023 16:19-0500 Respiratory rate 16 /min NA Rene PA-C Work Phone: [facility] 06-13-2023 16:19-0500 SaO2% (BldA) [Mass fraction] 95 % NA Rene PA-C Work Phone: [facility] 06-13-2023 16:19-0500 Systolic blood pressure 114 mm[Hg] NA Rene PA-C Work Phone: [facility] 12-29-2022 17:35-0400 Body height 179 cm NA Rene PA-C Work Phone: [facility] 12-29-2022 17:35-0400 Body weight 82.1 kg NA Rene PA-C Work Phone: [facility] 12-29-2022 17:35-0400 Diastolic blood pressure 62 mm[Hg] NA Rene PA-C Work Phone: [facility] 12-29-2022 17:35-0400 Heart rate 90 /min NA Rene PA-C Work Phone: [facility] 12-29-2022 17:35-0400 Respiratory rate 16 /min NA Rene PA-C Work Phone: [facility] 12-29-2022 17:35-0400 SaO2% (BldA) [Mass fraction] 96 % NA Rene PA-C Work Phone: [facility] 12-29-2022 17:35-0400 Systolic blood pressure 110 mm[Hg] NA Rene PA-C Work Phone: [facility] 08-23-2022 13:02-0500 Body weight 79.83 kg NA Rene PA-C Work Phone: [facility] 08-23-2022 13:02-0500 Diastolic blood pressure 62 mm[Hg] NA Rene PA-C Work Phone: [facility] 08-23-2022 13:02-0500 Heart rate 117 /min NA Rene PA-C Work Phone: [facility] 08-23-2022 13:02-0500 Respiratory rate 16 /min NA Rene PA-C Work Phone: [facility] 08-23-2022 13:02-0500 SaO2% (BldA) [Mass fraction] 96 % NA Rene PA-C Work Phone: [facility] 08-23-2022 13:02-0500 Systolic blood pressure 98 mm[Hg] NA Rene PA-C Work Phone: [facility] 07-26-2022 11:27-0500 Body weight 77.11 kg NA Rene PA-C Work Phone: [facility] 07-26-2022 11:27-0500 Diastolic blood pressure 60 mm[Hg] NA Rene PA-C Work Phone: [facility] 07-26-2022 11:27-0500 Heart rate 105 /min NA Rene PA-C Work Phone: [facility] 07-26-2022 11:27-0500 Respiratory rate 18 /min NA Rene PA-C Work Phone: [facility] 07-26-2022 11:27-0500 SaO2% (BldA) [Mass fraction] 99 % NA Rene PA-C Work Phone: [facility] 07-26-2022 11:27-0500 Systolic blood pressure 110 mm[Hg] NA Rene PA-C Work Phone: [facility] 12-14-2021 12:32-0400 Body temperature 97.59 [degF] Sharmaine Benavides PA-C Work Phone: [facility] 12-14-2021 12:32-0400 Body weight 79.83 kg Sharmaine Benavides PA-C Work Phone: [facility] 12-14-2021 12:32-0400 Diastolic blood pressure 80 mm[Hg] Sharmaine Benavides PA-C Work Phone: [facility] 12-14-2021 12:32-0400 Heart rate 84 /min Sharmaine Benavides PA-C Work Phone: [facility] 12-14-2021 12:32-0400 Respiratory rate 16 /min Sharmaine Benavides PA-C Work Phone: [facility] 12-14-2021 12:32-0400 Systolic blood pressure 102 mm[Hg] Sharmaine Benavides PA-C Work Phone: [facility] 01-09-2019 15:46-0400 Body Temperature 98.01 [degF] [facility] 01-09-2019 15:46-0400 BP Diastolic 74 mm[Hg] [facility] 01-09-2019 15:46-0400 BP Systolic 116 mm[Hg] [facility] 01-09-2019 15:46-0400 Pulse (Heart Rate) 68 /min [facility] 01-09-2019 15:46-0400 Pulse Oximetry 95 % [facility] 01-09-2019 15:46-0400 Respiratory Rate 16 /min [facility] 01-09-2019 04:20-0400 BMI (Body Mass Index) 24.52 kg/m2 [facility] 01-09-2019 04:20-0400 Body weight 77.5 kg [facility] 01-08-2019 09:090400 Height 177.8 cm Generic [facility] Encounters Encounter Date Encounter Type Care Provider Facility Start: 06-21-2023 End: 06-22-2023 ambulatory Patel BRIAN PRAJAPATION Facility:[facility] Start: 06-16-2023 Telephone encounter Patel Brian Rene PA-C Work Phone: [facility] Procedures Date Procedure Procedure Detail Performing Clinician Start: 01-09-2019 Incentive spirometry Douglas Chávez Work Phone: Start: 01-09-2019 End: 01-09-2019 Esophagogastroduodenoscopy Douglas Chávez Work Phone: Start: 01-09-2019 Endoscopy of esophagus Douglas Chávez Work Phone: Start: 01-09-2019 Complete blood count with white cell differential, automated Erikmina Ortiz Work Phone: Start: 01-09-2019 Complete blood count with white cell differential, manual Erikmina Ortiz Work Phone: Start: 01-09-2019 Comprehensive metabolic 2000 panel - Serum or Plasma Erik Ortiz Work Phone: Start: 01-09-2019 Lipase [Enzymatic activity/volume] in Serum or Plasma Erik Carl Ortiz Work Phone: Start: 01-08-2019 Troponin measurement Erik Carl Ortiz Work Phone: Start: 01-08-2019 US scan of upper abdomen Erikmina Ortiz Work Phone: Start: 01-08-2019 Bacteria identified in Unspecified specimen by Aerobe culture Erik Ortiz Work Phone: Start: 01-08-2019 Urinalysis Erikmina Ortiz Work Phone: Start: 01-08-2019 Troponin measurement Erik Ortiz Work Phone: Start: 01-08-2019 Complete blood count with white cell differential, automated Erik Ortiz Work Phone: Start: 01-08-2019 Complete blood count with white cell differential, manual Erik Ortiz Work Phone: Start: 01-08-2019 Comprehensive metabolic 2000 panel - Serum or Plasma Erik Ortiz Work Phone: Start: 01-08-2019 Lactate [Moles/volume] in Serum or Plasma Erik Ortiz Work Phone: Start: 01-08-2019 Troponin measurement Erik Ortiz Work Phone: Start: 04-12-2018 Lipid 1996 panel - Serum or Plasma NA Nura BRAVO-C Work Phone: Plan of Treatment Date Care Activity Detail Author Start: 12-29-2032 Urine microalbumin profile [facility] Start: 05-17-2024 DIABETES SCREEN DIABETES SCREEN [facility] Start: 05-17-2024 Diabetes Screening Diabetes Screenin g [facility] Start: 12-30-2023 SHINGRIX VACCINE (1 of 2) MORELAND GRIX VACCINE (1 of 2) [facility] Immunizations Immunization Date Immunization Notes Care Provider Chinyere mckeon 12-29-2022 tetanus toxoid, redu rita diphtheria toxoid, and acellular pertussis vaccine, adsorbed NA Edgard PA-C Work Phone: [facility] Payers Date Payer Category Payer Medicaid [id number] 2021 Unknown [id number] 2021 Unknown [id number] 2021 Medicaid [facility] MEDICAID [facility] MEDICAID [id number] 2021-Present [phone] [address] [place] [address] Medicaid [id number] 2021 Medicaid [id number] 2021 Medicaid [id number] 2018 Medicaid [id number] 2018 Medicaid [employer] [facility] MEDICA[employer] xxxxxxxxxxx 2018-Present xxxxxxxxxxx [id number] 1972 Unknown [id number] Social History Date Type Detail Facility Start: 01-09-2019 End: 07-26-2022 Tobacco smoking status IDIS Former smoker [facility] Sex Assigned At Not on file [facility] End: 08-11-2020 History of tobacco use Current smoker [facility] End: 08-11-2020 History of tobacco use Cigarette Smoker [facility] Start: 09-04-2020 End: 11-24-2022 Cigarettes smoked current (pack per day) - Reported 1.5 [facility] Start: 09-04-2020 End: 12-29-2022 Tobacco use and exposure Smokeless tobacco non-user [facility] Start: 12-14-2021 End: 06-13-2023 Alcohol intake Ex-drinker (finding) [facility] Start: 05-13-2020 End: 08-22-2022 History SDOH Alcohol Frequency 2 [facility] Start: 05-13-2020 End: 09-04-2020 History SDOH Alcohol Std Drinks 1 [facility] Start: 05-29-2015 History SDOH Alcohol Comment beer occasionally [facility] Start: 04-06-2020 End: 08-22-2022 History SDOH Social Connections Phone 5 [facility] Start: 04-06-2020 End: 08-22-2022 History SDOH Stress 3 [facility] Start: 04-06-2020 Education 21 [facility] Start: 12-14-2021 End: 07-26-2022 Tobacco Comment in the process of quiting smoking smokes 1/2 pack daily [facility] Start: 1970 Sex Assigned At Male C [facility] Start: 12-04-2021 End: 12-14-2021 Exposure to SARS-CoV-2 (event) Not sure [facility] Start: 08-22-2022 History SDOH Alcohol Std Drinks 0 [facility] Start: 12-29-2022 Tobacco smoking stat [facility] Smokes tobacco daily [facility] Start: 08-21-2022 End: 11-24-2022 Social connection and isolation panel [facility] Do you belong to any clubs or organizations such as protestant groups, unions, fraternal or athletic groups, or school groups? No [facility] Are you now , , , , never or living with a partner? [facility] How often to you hav e a drink containing alcohol? Never [facility] How many standard dr inks containing alcohol do you have on a typical day? Patient does not drink [facility] How hard is it for y ou to pay for the very basics like food, housing, medical care, and heating Somewhat hard [facility] Do you feel stress - tense, restless, nervous, or anxious, or unable to sleep at night because your mind is troubled all the time - these days [OSQ] To some extent [facility] (I/We) worried wheth er (my/our) food would run out before (I/we) got money to buy more. Never true [facility] Start: 05-11-2020 Gender identity Identifies as male gender (finding) [facility] Start: 05-11-2020 Sexual orientation Heterosexual (fin low) [facility] Clinical Notes 12-14-2021 to 06-16-2023 Telephone Encounter - Theresa Garcia Ma - 06/16/2023 9:05 AM ESTTelephone Encounter - Gissel Rodrigues RN - 06/16/2023 8:27 AM ESTPatient Patel Santo PA-C - 06/13/2023 4:00 PM EST Note Date & Type Note Facility 06-16-2023 Miscellaneous Notes Completed forms faxed Henny from [facility] calls and is asking about completed surgical clearance form. Please fax to [phone]. Gissel Rodrigues RN documented in this encounter [facility] 06-13-2023 Note HNO ID: [id number] Author: Mindi Hennessy RT(R) Service: ? 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 FALL SCREENING: Has the patient had 2 falls in the last year or 1 fall with injury or currently using an Ambulatory Assistive Device (Walker, Cane, Wheelchair, Crutches, etc.)? No PATIENT GENDER DATA: Male PATIENT RELEVANT IMPLANT DATA REVIEWED: Yes RADIOLOGY DEPARTMENT: General X-ray: Exam(s) Completed: Chest X-Ray PERIPHERAL IV DATA: Not applicable SIGNED BY: RT Alexus(R) June 13, 2023 5:17 PM [facility] 06-13-2023 Note HNO ID: [id number] Author: Patel Rene PA-C Service: ? Author Type: Physician Pharmacists Type: Progress Notes Filed: 06/16/2023 6:37 PM Note Text: HISTORY AND PHYSICAL EXAMINATION SERVICE DATE: 06/12/2023 SERVICE TIME: 6:23 AM PRIMARY CARE PHYSICIAN: Scott Morales MD Patient presents for consultation from Dr. Kareem Purcell for medical preop clearance. My findings and recommendations will be communicated through this medical record. Upcoming surgery for: Robotic assisted right total brain replacement. Pertinent history and review: Current signs of infection: No. Chest pain: No. Cardiac history or testing: yes 06/19/2019 treadmill stress test [facility]: Conclusions normal adequate general EKG, negative for ischemia by EKG criteria, no angina noted, no arrhythmias noted, average capacity for age, appropriate blood pressure response to exercise. 06/04/2023 echocardiogram [facility]: LV size and LVSF WNL, EF 57%, normal left diastolic function, wall motion all within normal limits RV size and RV SF WNL, insufficient TR signal for RSVP. RAP 8 mmHg LA, RA both WNL, normal vena cava No significant valvular abnormalities 08/07/2020 hyperinflation lungs 06/03/2019 EKG normal sinus rhythm, normal axes Shortness of breath: No. Pulmonary testing to date: none Known sleep apnea: No. Hx of clotting issues: No. Current bleeding or bruising: No. Additional history of potential concern: ACTIVE PROBLEM LIST Pain in Joint, Lower Leg Acute Meniscal Tear of Knee S/P right knee arthroscopy, chondroplasty and partial lateral meniscectomy Instability of Right Shoulder Joint Tobacco Use Depression Excessive Caffeine Abuse, Continuous (Hcc) REVIEW OF SYSTEMS: PAIN ASSESSMENT: Is the patient having any pain? Yes right knee, every once in awhile at work, rate 5-6/10. Taking Acetaminophen 500mg 2 tabs at night General: Weight loss none and always tired, sleeps 4-5 hours at most r/t work schedule Neuro: No Hx of stroke or seizures Respiratory: having cough for last 3-4 months with clear mucus, usually laying down at nigth, getting up in the morning. Smokes 1PPD. Cardiovascular: Positive for: none see testing above GI: No history of GI symptoms or problems. No history of esophageal varices, recent ascites, or ETOH greater than 2 drinks per day. : No history of UTI in past 6 weeks. No history of renal failure. Not currently on or requiring dialysis. No history of symptoms or problems. 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 Has not taken steroids within the past 30 days. No history of endocrinological symptoms or problems. Hematology: No history of bleeding or clotting disorder. Pt is not taking anti-coagulation or platelet medications. No history of hematological symptoms or problems. Oncology: No history of CA metastasis, chemo within 30 days, or radiotherapy within 90 days. Has not lost 10% of body wt in 6 months. No history of oncological symptoms or problems. Psych: Anxiety, Depression Musculoskeletal: Negative for joint pain or swelling, back pain or muscle pain. and right shoulder pain s/p rotator cuff repair . Positive hx epidural injection Skin: Negative for lesions, rash and itching. HISTORIES FAMILY HISTORY Problem Relation Age of Onset Ischemic Heart Disease Mother 50 Breast Cancer Mother other (Other) Mother B cell lymphoma Diabetes Father Hyperlipidemia Father Hypertension Father Ischemic Heart Disease Paternal Uncle 50 Colon Cancer Other none Prostate Cancer Other none PAST MEDICAL HISTORY Diagnosis Date Depression since 1992 following [id number] Excessive caffeine abuse, continuous (HCC) 05/07/2021 Internal derangement of right knee PAST SURGICAL HISTORY Procedure Laterality Date ARTHROSCOPY KNEE SURGICAL W/LAT RELEASE Right 06/08/2015 lateral meniscectomy and chondroplasty OPEN RX DIST RAD/ULNA FX Right 1981 TONSILLECTOMY PRIMARY/SECONDARY Tonsillectomy VASECTOMY UNI/BI SPX W/POSTOP SEMEN EXAMS Social History Tobacco Use Smoking status: Every Day Packs/day: 1.00 Years: 20.00 Additional pack years: 0.00 Total pack years: 20.00 Types: Cigarettes Last attempt to quit: 08/11/2020 Years since quittin.8 Smokeless tobacco: Never Tobacco comments: in the process of quiting smoking smokes 1/2 pack daily Vaping Use Vaping Use: Some days Substances: Flavoring Devices: Pre-filled or refillable cartridge Substance Use Topics Alcohol use: Not Currently Alcohol/week: 4.0 - 6.0 standard drinks of alcohol Types: 4 - 6 Cans of Beer (12oz) per week Comment: beer occasionally Drug use: No PHYSICAL EXAM: VITALS: BP 110/62 Pulse 103 Wt 195 lb (88.5kg) SpO2 95% LMP 12/08/2009 General: Alert and oriented Skin: Normal color, no rash, no lesions. HEENT: EOM, pupils equal, (more content not included)... [facility] 06-13-2023 Instructions Patel Rene PA-C - 06/13/2023 5:03 PM EST Stop all over the counter medications or supplements 1 week prior to surgery unles told otherwise by your surgery team. documented in this encounter [facility] 06-13-2023 History of Presen t illness Narrative HISTORY AND PHYSICAL EXAMINATION SERVICE DATE: 06/12/2023\ SERVICE TIME: 6:23 AM PRIMARY CARE PHYSICIAN: Scott Morales MD Patient presents for consultation from Dr. Kareem Purcell for medical preop clearance. My findings and recommendations will be communicated through this medical record. Upcoming surgery for: Robotic assisted right total brain replacement. Pertinent history and review: Current signs of infection: No. Chest pain: No. Cardiac history or testing: yes 06/19/2019 treadmill stress test [facility]: Conclusions normal adequate general EKG, negative for ischemia by EKG criteria, no angina noted, no arrhythmias noted, average capacity for age, appropriate blood pressure response to exercise. 06/04/2023 echocardiogram [facility]: LV size and LVSF WNL, EF 57%, normal left diastolic function, wall motion all within normal limits RV size and RV SF WNL, insufficient TR signal for RSVP. RAP 8 mmHg LA, RA both WNL, normal vena cava No significant valvular abnormalities 08/07/2020 hyperinflation lungs 06/03/2019 EKG normal sinus rhythm, normal axes Shortness of breath: No. Pulmonary testing to date: none Known sleep apnea: No. Hx of clotting issues: No. Current bleeding or bruising: No. Additional history of potential concern: ACTIVE PROBLEM LIST Pain in Joint, Lower Leg Acute Meniscal Tear of Knee S/P right knee arthroscopy, chondroplasty and partial lateral meniscectomy Instability of Right Shoulder Joint Tobacco Use Depression Excessive Caffeine Abuse, Continuous (Hcc) REVIEW OF SYSTEMS: PAIN ASSESSMENT: Is the patient having any pain? Yes right knee, every once in awhile at work, rate 5-6/10. Taking Acetaminophen 500mg 2 tabs at night General: Weight loss none and always tired, sleeps 4-5 hours at most r/t work schedule Neuro: No Hx of stroke or seizures Respiratory: having cough for last 3-4 months with clear mucus, usually laying down at nigth, getting up in the morning. Smokes 1PPD. Cardiovascular: Positive for: none see testing above GI: No history of GI symptoms or problems. No history of esophageal varices, recent ascites, or ETOH greater than 2 drinks per day. : No history of UTI in past 6 weeks. No history of renal failure. Not currently on or requiring dialysis. No history of symptoms or problems. 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 Has not taken steroids within the past 30 days. No history of endocrinological symptoms or problems. Hematology: No history of bleeding or clotting disorder. Pt is not taking anti-coagulation or platelet medications. No history of hematological symptoms or problems. Oncology: No history of CA metastasis, chemo within 30 days, or radiotherapy within 90 days. Has not lost 10% of body wt in 6 months. No history of oncological symptoms or problems. Psych: Anxiety, Depression Musculoskeletal: Negative for joint pain or swelling, back pain or muscle pain. and right shoulder pain s/p rotator cuff repair . Positive hx epidural injection Skin: Negative for lesions, rash and itching. HISTORIES FAMILY HISTORY Problem Relation Age of Onset Ischemic Heart Disease Mother 50 Breast Cancer Mother other (Other) Mother B cell lymphoma Diabetes Father Hyperlipidemia Father Hypertension Father Ischemic Heart Disease Paternal Uncle 50 Colon Cancer Other none Prostate Cancer Other none PAST MEDICAL HISTORY Diagnosis Date Depression since 1992 following [id number] Excessive caffeine abuse, continuous (HCC) 05/07/2021 Internal derangement of right knee PAST SURGICAL HISTORY Procedure Laterality Date ARTHROSCOPY KNEE SURGICAL W/LAT RELEASE Right 06/08/2015 lateral meniscectomy and chondroplasty OPEN RX DIST RAD/ULNA FX Right 1981 TONSILLECTOMY PRIMARY/SECONDARY <AGE 14 Tonsillectomy VASECTOMY UNI/BI SPX W/POSTOP SEMEN EXAMS Social History Tobacco Use Smoking status: Every Day Packs/day: 1.00 Years: 20.00 Additional pack years: 0.00 Total pack years: 20.00 Types: Cigarettes Last attempt to quit: 08/11/2020 Years since quittin.8 Smokeless tobacco: Never Tobacco comments: in the process of quiting smoking smokes 1/2 pack daily Vaping Use Vaping Use: Some days Substances: Flavoring Devices: Pre-filled or refillable cartridge Substance Use Topics Alcohol use: Not Currently Alcohol/week: 4.0 - 6.0 standard drinks of alcohol Types: 4 - 6 Cans of Beer (12oz) per week Comment: beer occasionally Drug use: No PHYSICAL EXAM: VITALS: BP 110/62 Pulse 103 Wt 195 lb (88.5kg) SpO2 95% LMP 12/08/2009 General: Alert and oriented Skin: Normal color, no rash, no lesions. HEENT: EOM, pupils equal, round and reactive. Cardiovascular: Normal S1 & S2, no rubs, murmurs or gallops. No JVD. Pulse regular. Lungs: Normal breath sounds, no wheezes or crackles. Abdomen: Soft, non-tender, no rigidity. Extremities: No deformity, no edema or tenderness, no joint swelling or clubbing. Neurological: Normal cognition and motor skills. Pulses: Carotid and radial pulses normal +2. Pedal pulses normal +2. Diagnostic tests reviewed for today's visit: Most recent EKG: normal sinus rhythm, normal axis, normal intervals, reviewed by myself pending cardiology review CXR: No acute radiographic abnormality. Labs ordered per surgical team ASSESSMENT There is no known pertinent medical condition which may affect apolonia-operative course Clinical Risk Factors for Possible Cardiac Complications: None Patient is scheduled for a intermediate-risk procedure. FUNCTIONAL STATUS: Do heavy work around the house, such as scrubbing floors, lifting or moving heavy furniture (8.00 METs) Functional Class (NYHA): I-II ANESTHESIA FINDINGS: Intubation History: No history of difficult intubation Significant Anesthesia Considerations: None Airway Exam: General: Normal appearance Mallampati Score is CLASS I ULBT: Unable to perform due to no lower front teeth Neck: Normal appearance and function, Distance from hyoid to mentum during neck extension is at least 3 finger breaths Mouth: Normal tongue size Dentition: Upper denture Airway History: No abnormal airway history [facility]: Not obtained PLAN CONSULTS: Patient does not require consults for optimization at this time. The Following Tests/Procedures Have Been Initiated: EKG, Chest X-Ray: no abnormalities found Instructions Given to Patient: Patient given verbal and written preop instructions and voices comprehension and compliance. SIGNATURE: Patel Rene PA-C PATIENT NAME: Allen Perez JR DATE: 06/12/2023 TIME: 6:23 AM PAGER/CONTACT #: [phone] documented in this encounter [facility] 06-05-2023 Miscellaneous Notes Noted nurse Keren @ [facility] PAT calling with request that patient have an EKG done at his surgery clearance appointment on 06/13/23. He was unable to get it done @ [facility]. Malka Chan RN documented in this encounter [facility] 12-29-2022 Note HNO ID: [id number] Author: Patel Rene PA-C Service: ? Author Type: Physician Pharmacists Type: Progress Notes Filed: 12/29/2022 9:15 PM Note Text: 52 year old male with c/o physical Current concerns: Right knee pain, seeing Dr. Harding. Cortisone injection didn't help. Still has pain. Left sciatic nerve: having procedure done by pain management. threw out Imiquimod, needs refilled: never started Excessive caffeine abuse, continuous (hcc) (primary encounter diagnosis) 3 cups day down from 8-12 Using Red Bull x 4 Reactive depression Current medications: Vortioxetine 10mg daily Feeling good on medicaiton, working well. Instability of right shoulder joint Better with exercise and stretching. S/p right knee arthroscopy, chondroplasty and partial lateral meniscectomy Acute meniscal tear of right knee, subsequent encounter Doing well overall . HISTORIES FAMILY HISTORY Problem Relation Age of Onset Ischemic Heart Disease Mother 50 Breast Cancer Mother other (Other) Mother B cell lymphoma Diabetes Father Hyperlipidemia Father Hypertension Father Ischemic Heart Disease Paternal Uncle 50 Colon Cancer Other none Prostate Cancer Other none PAST MEDICAL HISTORY Diagnosis Date Depression since 1992 following [id number] Excessive caffeine abuse, continuous (HCC) 05/07/2021 Internal derangement of right knee PAST SURGICAL HISTORY Procedure Laterality Date ARTHROSCOPY KNEE SURGICAL W/LAT RELEASE Right 06/08/2015 lateral meniscectomy and chondroplasty OPEN RX DIST RAD/ULNA FX Right 1981 TONSILLECTOMY PRIMARY/SECONDARY Tonsillectomy VASECTOMY UNI/BI SPX W/POSTOP SEMEN EXAMS Social History Tobacco Use Smoking status: Former Packs/day: 1.50 Years: 20.00 Pack years: 30.00 Types: Cigarettes Quit date: 08/11/2020 Years since quittin.3 Smokeless tobacco: Never Tobacco comments: in the process of quiting smoking smokes 1/2 pack daily Vaping Use Vaping Use: Some days Substances: Flavoring Devices: Pre-filled or refillable cartridge Substance Use Topics Alcohol use: Not Currently Alcohol/week: 10.0 - 15.0 standard drinks Types: 4 - 6 Cans of Beer (12oz) per week Comment: beer occasionally Drug use: No ACTIVE PROBLEM LIST Pain in Joint, Lower Leg Acute Meniscal Tear of Knee Tobacco Use S/P right knee arthroscopy, chondroplasty and partial lateral meniscectomy Depression Instability of Right Shoulder Joint Excessive Caffeine Abuse, Continuous (Hcc) Current Outpatient Medications Medication Sig Dispense Refill vortioxetine (TRINTELLIX) 10 mg tablet Take 1 tablet by mouth once daily. 90 tablet 1 oxyCODONE IR (ROXICODONE) 5 mg immediate release tablet TAKE 1 TO 2 TABLETS BY MOUTH EVERY 6 HOURS nabumetone (RELAFEN) 500 mg tablet Take 500 mg by mouth twice daily. TAKE WITH FOOD. dicyclomine (BENTYL) 10 mg capsule Take 1 capsule by mouth before meals and at bedtime. 60 capsule 1 albuterol HFA (PROAIR HFA) 90 mcg/actuation inhaler Inhale 2 Puffs as instructed every 4 hours as needed. 1 Each 11 No current facility-administered medications for this visit. HEPATITIS B(1 of 3 - 3-dose series) Never done HEPATITIS C SCREENING Never done HIV SCREENING Never done DTAP,TDAP,TD(1 - Tdap) Never done COLORECTAL CANCER SCREENING Never done COVID-19 VACCINE(3 - Booster for Pfizer series) due on 02/12/2021 LUNG CANCER SCREENING Never done SHINGRIX VACCINE(1 of 2) Never done REVIEW OF SYMPTOMS: General: denies fatigue, unusual weight loss or gain, fevers, chills. Energy Level: low. Exercise goes to gym if has time, once a week. If yes, what type: lifts, track. How often/lon-2 per week. Sleep: hours: 5 hour, unrefreshing, snores Diet: eats whatever Tobacco use: 1 PPD. Caffeine use: as above . ETOH use: barely. Marijuana use: none. Illicit drug use: none. Eyes: denies change in vision, glaucoma. Emelle EYe: states told bilateral cataracts. wears/contacts. Last eye exam: last year. EENT: denies recurrent sinus infection, unusual nasal drainage, hoarsemess, sore throat, or recurrent sore in mouth or tongue. Cardiovascular: denies chest pain , SOB, palpitation, irregular or racing heart beats, orthopnea, leg swelling, history of rheumatic fever or prior heart conditions Respiratory: denies unusual cough, SOB, wheezing, history of recurrent bronchitis, pneumonia or tuberculosis. Denies day time drowsiness. +Snoring. no sleep apnea witnessed, denies daytime drowsiness but high caffeine use. . (more content not included)... [facility] 12-29-2022 History of Presen t illness Narrative 52 year old male with c/o physical Current concerns: Right knee pain, seeing Dr. Harding. Cortisone injection didn't help. Still has pain. Left sciatic nerve: having procedure done by pain management. threw out Imiquimod, needs refilled: never started Excessive caffeine abuse, continuous (hcc) (primary encounter diagnosis) 3 cups day down from 8-12 Using Red Bull x 4 Reactive depression Current medications: Vortioxetine 10mg daily Feeling good on medicaiton, working well. Instability of right shoulder joint Better with exercise and stretching. S/p right knee arthroscopy, chondroplasty and partial lateral meniscectomy Acute meniscal tear of right knee, subsequent encounter Doing well overall . HISTORIES FAMILY HISTORY Problem Relation Age of Onset Ischemic Heart Disease Mother 50 Breast Cancer Mother other (Other) Mother B cell lymphoma Diabetes Father Hyperlipidemia Father Hypertension Father Ischemic Heart Disease Paternal Uncle 50 Colon Cancer Other none Prostate Cancer Other none PAST MEDICAL HISTORY Diagnosis Date Depression since 1992 following [id number] Excessive caffeine abuse, continuous (HCC) 05/07/2021 Internal derangement of right knee PAST SURGICAL HISTORY Procedure Laterality Date ARTHROSCOPY KNEE SURGICAL W/LAT RELEASE Right 06/08/2015 lateral meniscectomy and chondroplasty OPEN RX DIST RAD/ULNA FX Right 1981 TONSILLECTOMY PRIMARY/SECONDARY <AGE 14 Tonsillectomy VASECTOMY UNI/BI SPX W/POSTOP SEMEN EXAMS Social History Tobacco Use Smoking status: Former Packs/day: 1.50 Years: 20.00 Pack years: 30.00 Types: Cigarettes Quit date: 08/11/2020 Years since quittin.3 Smokeless tobacco: Never Tobacco comments: in the process of quiting smoking smokes 1/2 pack daily Vaping Use Vaping Use: Some days Substances: Flavoring Devices: Pre-filled or refillable cartridge Substance Use Topics Alcohol use: Not Currently Alcohol/week: 10.0 - 15.0 standard drinks Types: 4 - 6 Cans of Beer (12oz) per week Comment: beer occasionally Drug use: No ACTIVE PROBLEM LIST Pain in Joint, Lower Leg Acute Meniscal Tear of Knee Tobacco Use S/P right knee arthroscopy, chondroplasty and partial lateral meniscectomy Depression Instability of Right Shoulder Joint Excessive Caffeine Abuse, Continuous (Hcc) Current Outpatient Medications Medication Sig Dispense Refill vortioxetine (TRINTELLIX) 10 mg tablet Take 1 tablet by mouth once daily. 90 tablet 1 oxyCODONE IR (ROXICODONE) 5 mg immediate release tablet TAKE 1 TO 2 TABLETS BY MOUTH EVERY 6 HOURS nabumetone (RELAFEN) 500 mg tablet Take 500 mg by mouth twice daily. TAKE WITH FOOD. dicyclomine (BENTYL) 10 mg capsule Take 1 capsule by mouth before meals and at bedtime. 60 capsule 1 albuterol HFA (PROAIR HFA) 90 mcg/actuation inhaler Inhale 2 Puffs as instructed every 4 hours as needed. 1 Each 11 No current facility-administered medications for this visit. HEPATITIS B(1 of 3 - 3-dose series) Never done HEPATITIS C SCREENING Never done HIV SCREENING Never done DTAP,TDAP,TD(1 - Tdap) Never done COLORECTAL CANCER SCREENING Never done COVID-19 VACCINE(3 - Booster for [employer] series) due on 02/12/2021 LUNG CANCER SCREENING Never done SHINGRIX VACCINE(1 of 2) Never done REVIEW OF SYMPTOMS: General: denies fatigue, unusual weight loss or gain, fevers, chills. Energy Level: low. Exercise goes to gym if has time, once a week. If yes, what type: lifts, track. How often/lon-2 per week. Sleep: hours: 5 hour, unrefreshing, snores Diet: eats whatever Tobacco use: 1 PPD. Caffeine use: as above . ETOH use: barely. Marijuana use: none. Illicit drug use: none. Eyes: denies change in vision, glaucoma. Emelle EYe: states told bilateral cataracts. wears/contacts. Last eye exam: last year. EENT: denies recurrent sinus infection, unusual nasal drainage, hoarsemess, sore throat, or recurrent sore in mouth or tongue. Cardiovascular: denies chest pain , SOB, palpitation, irregular or racing heart beats, orthopnea, leg swelling, history of rheumatic fever or prior heart conditions Respiratory: denies unusual cough, SOB, wheezing, history of recurrent bronchitis, pneumonia or tuberculosis. Denies day time drowsiness. +Snoring. no sleep apnea witnessed, denies daytime drowsiness but high caffeine use. . GI: denies difficulty swallowing, nausea, vomiting, change in appetite. No change in bowel habits. Denies constipation, diarrhea, rectal bleeding or hemorrhoids, incontinence. No history of GERD, PUD, jaundice/hepatitis, GB disease, diverticulosis, colorectal cancer, hernias. Kidney/Bladder: Denies frequency, burning. Nocturia x 2, incontinence none. Normal stream. Normal erectile function. No history of kidney stones, recurrent UTI or kidney infection. Skin: denies unusual rashes. No history of skin cancer, bleeding/changing moles, or unusual skin lesions. Neurologic: Denies recurrent VELAZQUEZ, change in vision, hearing or smell, tremors, unusual weakness, loss of sensation, or difficulty with balance or gait. No history of epilepsy/convulsions, migraine, head/spinal injuries, or stroke/TIA. Psychiatric: denies unusual worry, moodiness, depression, suicidal ideation or unusual disturbance in relationships. No history of psychiatric illness. Endocrine: denies unusual thirst, hunger, excessive urination, change in skin or hair texture, emotional lability. No history of thryoid, pituitary or hormonal problems. Hematologic: denies unusual bleeding, bruising, or history of anemia or blood transfusion. Denies hx blood clots. Infections: denies risk factors for HIV, hepatitis or history of unusual infection. Immunizations are up to date. Musculoskeletal: as above EXAM: BP 110/62 Pulse 90 Resp 16 Ht 179 cm (5' 10.47 ) Wt 82.1 kg (181 lb) SpO2 96% BMI 25.62 kg/m Pleasant well appearing adult man in no acute distress. Alert and oriented all spheres. Mood euthymic with cheerful affect, joking around. Normal cognition. Speech normal. No deficits to learning or comprehension. Skin warm, dry, pink to lips and nailbeds. Normal turgor. Multiple skin tags, small keratoses, lerner angiomas, small uniform brown moles. Respirations regular and unlabored. HEENT: NCAT. No scleral icterus or conjunctival injection. Partial obstruction bilaterally with cerumen. Visualized TM's clear. Nose and oropharynx free from injection or lesion. Oral membranes moist and pink. Multiple missing teeth, severe gum recession, tender abscess left facial gum with swelling in to chin. No cervical lymph nodes. Thyroid non-tender, no masses, or enlargement. Carotids pulses 2+/4+ without bruits. No JVD with HOB at 30 degrees. Abdomen: active bowel sounds throughout, soft, nontender, no masses or organomegaly. No CVAT. No abdominal bruits, axillary or inguinal nodes. Femoral pulses 2/4+ without bruit. Declined genital / rectal exams. Extrem: no clubbing or cyanosis. Edema: none. Extremities are warm and pink with prompt capillary refill. Good ROm all joints. Feet bilaterally with 2/4+ dorsal pulses, pink, warm toes. Dystrophic nails bilaterally with one small spot of white macerated tissue left 4-5th toe space. Gait and balance normal. Sensation grossly intact. Negative findings: speech normal, mental status intact, cranial nerves 2-12 intact, muscle tone normal, DTRs 2/4+ and symmetric ASSESSMENT/PLAN: 1. Excessive caffeine abuse, continuous (HCC) - ICD9: 305.91, ICD10: F15.10 (primary diagnosis) Encouraged to continue caffeine reduction 2. Reactive depression - ICD9: 300.4, ICD10: F32.9 Doing very well on Vortioxetine. - CBC + DIFF - COMP METABOLIC PANEL 3. Instability of right shoulder joint - ICD9: 718.81, ICD10: M25.311 No recent issues 4. S/P right knee arthroscopy, chondroplasty and partial lateral meniscectomy - ICD9: V45.89, ICD10: Z98.890 5. Acute meniscal tear of right knee, subsequent encounter - ICD9: V58.89, 836.2, ICD10: S83.206D States initial procedure not done correctly, having to redo knee surgery, possible replacement. 6. Tobacco use - ICD9: 305.1, ICD10: Z72.0 - Cessation encouraged. - Physiologic and physical aspects of tobacco addiction as well as strategies for quitting were discussed. - Counseling was given focusing on the harmful effects of this addiction especially given the patient's medical condition(s) which will be worsened because of the chemicals in tobacco. - VARENICLINE 1 MG TABLET - VARENICLINE 1 MG TABLET 7. Gum abscess - ICD9: 523.30, ICD10: K05.219 Needs to see dentist assoon as possible: agreers to follow up - CEPHALEXIN 500 MG CAPSULE 8. Screening for colon cancer - ICD9: V76.51, ICD10: Z12.11 - CONSULT TO GENERAL SURGERY 9. Special screening examination for viral disease - ICD9: V73.99, ICD10: Z11.59 - HEPATITIS C ANTIBODY IA WITH CONFIRMATION 10. Encounter for immunization - ICD9: V03.89, ICD10: Z23 - TDAP VACCINE, AGE 7+ YR (ADACEL, BOOSTRIX) 11. Encounter for screening for lung cancer - ICD9: V76.0, ICD10: Z12.2 - CONSULT LUNG CANCER SCREENING CLINIC 12. Screening for prostate cancer - ICD9: V76.44, ICD10: Z12.5 - Risks/benefits of prostate cancer screening discussed. screening PSA ordered - PSA/PROSTSPECAG SCRN 13. Screening for lipid disorders - ICD9: V77.91, ICD10: Z13.220 - LIPID PANEL BASIC 14. Genital warts - ICD9: 078.11, ICD10: A63.0 Renewed rx - IMIQUIMOD 5 % TOPICAL CREAM PACKET F/u 6 months or as needed. Patel Rene PA-C documented in this encounter [facility] 08-23-2022 Note HNO ID: [id number] Author: Patel Rene PA-C Service: ? Author Type: Physician Pharmacists Type: Progress Notes Filed: 08/23/2022 2:11 PM Note Text: 52 year old male with c/o here for follow up. States he is in a fog and is freezing. Symptoms started last night. Patient was fatigued and did not want to wake up today. (+) productive cough, sputum is clear, body aches. Denies fever, congestion, sore throat, ear pain. Moderate episode of recurrent major depressive disorder (hcc) Current meds: Vortixetine 5mg daily Change in medication: Just started 4 weeks ago. Currently in counseling? No. Any Medication side effects? No. Sleep disturbance? Yes, having trouble sleeping. Was having this issue before the medication. Sleeps about 7-8 hours Loss of interest in usual pleasurable activities? Yes, states the weather doesn't help Sense of guilt, shame, low self esteem?Yes. Energy: Low Trouble with concentration? No. Changes in appetite? Only eats once a day, no new change Changes in weight? No Psychomotor retardation: No Suicidal thoughts: No Racing thoughts? No. Interpersonal/ family conflicts? No. Irritability? No. 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 Went back to work yesterday. R Knee Repair at the middle of June 2022 Still recovering Goes to PT twice a week Started back to work this week, aggravated knee Having medial thigh numbness and tingling, burning medial right thigh, lateral left thigh Dr. Lou Gleason suggesting MRI to be scheduled. HISTORIES FAMILY HISTORY Problem Relation Age of Onset Ischemic Heart Disease Mother 50 Breast Cancer Mother other (Other) Mother B cell lymphoma Diabetes Father Hyperlipidemia Father Hypertension Father Ischemic Heart Disease Paternal Uncle 50 Colon Cancer Other none Prostate Cancer Other none PAST MEDICAL HISTORY Diagnosis Date Depression since 1992 following [id number] Excessive caffeine abuse, continuous (HCC) 05/07/2021 Internal derangement of right knee PAST SURGICAL HISTORY Procedure Laterality Date ARTHROSCOPY KNEE SURGICAL W/LAT RELEASE Right 06/08/2015 lateral meniscectomy and chondroplasty OPEN RX DIST RAD/ULNA FX Right 1981 TONSILLECTOMY PRIMARY/SECONDARY Tonsillectomy VASECTOMY UNI/BI SPX W/POSTOP SEMEN EXAMS Social History Tobacco Use Smoking status: Former Packs/day: 1.50 Years: 20.00 Pack years: 30.00 Types: Cigarettes Quit date: 08/11/2020 Years since quittin.0 Smokeless tobacco: Never Tobacco comments: in the process of quiting smoking smokes 1/2 pack daily Vaping Use Vaping Use: Some days Substances: Flavoring Devices: Pre-filled or refillable cartridge Substance Use Topics Alcohol use: Not Currently Alcohol/week: 10.0 - 15.0 standard drinks Types: 4 - 6 Cans of Beer (12oz) per week Comment: beer occasionally Drug use: No ACTIVE PROBLEM LIST Pain in Joint, Lower Leg Acute Meniscal Tear of Knee Tobacco Use S/P right knee arthroscopy, chondroplasty and partial lateral meniscectomy Depression Instability of Right Shoulder Joint Excessive Caffeine Abuse, Continuous (Hcc) Current Outpatient Medications Medication Sig Dispense Refill oxyCODONE IR (ROXICODONE) 5 mg immediate release tablet TAKE 1 TO 2 TABLETS BY MOUTH EVERY 6 HOURS nabumetone (RELAFEN) 500 mg tablet Take 500 mg by mouth twice daily. TAKE WITH FOOD. vortioxetine (TRINTELLIX) 5 mg tablet Take 1 tablet by mouth once daily. 30 tablet 2 dicyclomine (BENTYL) 10 mg capsule Take 1 capsule by mouth before meals and at bedtime. 60 capsule 1 terbinafine HCl (LAMISIL) 250 mg tablet Take 1 tablet by mouth once daily. (Patient not taking: Reported on 07/26/2022) 30 tablet 2 albuterol HFA (PROAIR HFA) 90 mcg/actuation inhaler Inhale 2 Puffs as instructed every 4 hours as needed. 1 Each 11 No current facility-administered medications for this visit. HEPATITIS B(1 of 3 - 3-dose series) Never done HEPATITIS C SCREENING Never done HIV SCREENING Never done DTAP,TDAP,TD(1 - Tdap) Never done COLORECTAL CANCER SCREENING Never done COVID-19 VACCINE(3 - Booster for Pfizer series) due on 02/12/2021 INFLUENZA(1) Never done LUNG CANCER SCREENING Never done SHINGRIX VACCINE(1 of 2) Never done EXAM: BP 98/62 Pulse 117 Resp 16 Wt 79.8 kg (176 lb) SpO2 96% BMI 24.55 kg/m? Pleasant adult male in no acute distress. Alert and oriented all spheres. Mood mildly dysthymic, congruent affect, easy rapport. No perceptions. Normal cognition. Speech normal. No deficits to learning or comprehens (more content not included)... [facility] 08-23-2022 History of Presen t illness Narrative 52 year old male with c/o here for follow up. States he is in a fog and is freezing. Symptoms started last night. Patient was fatigued and did not want to wake up today. (+) productive cough, sputum is clear, body aches. Denies fever, congestion, sore throat, ear pain. Moderate episode of recurrent major depressive disorder (hcc) Current meds: Vortixetine 5mg daily Change in medication: Just started 4 weeks ago. Currently in counseling? No. Any Medication side effects? No. Sleep disturbance? Yes, having trouble sleeping. Was having this issue before the medication. Sleeps about 7-8 hours Loss of interest in usual pleasurable activities? Yes, states the weather doesn't help Sense of guilt, shame, low self esteem?Yes. Energy: Low Trouble with concentration? No. Changes in appetite? Only eats once a day, no new change Changes in weight? No Psychomotor retardation: No Suicidal thoughts: No Racing thoughts? No. Interpersonal/ family conflicts? No. Irritability? No. 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 Went back to work yesterday. R Knee Repair at the middle of June 2022 Still recovering Goes to PT twice a week Started back to work this week, aggravated knee Having medial thigh numbness and tingling, burning medial right thigh, lateral left thigh Dr. Lou Jaramillo [facility] suggesting MRI to be scheduled. 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 caffeine abuse, continuous (HCC) 05/07/2021 Internal derangement of right knee PAST SURGICAL HISTORY Procedure Laterality Date ARTHROSCOPY KNEE SURGICAL W/LAT RELEASE Right 06/08/2015 lateral meniscectomy and chondroplasty OPEN RX DIST RAD/ULNA FX Right 1981 TONSILLECTOMY PRIMARY/SECONDARY <AGE 14 Tonsillectomy VASECTOMY UNI/BI SPX W/POSTOP SEMEN EXAMS Social History Tobacco Use Smoking status: Former Packs/day: 1.50 Years: 20.00 Pack years: 30.00 Types: Cigarettes Quit date: 08/11/2020 Years since quittin.0 Smokeless tobacco: Never Tobacco comments: in the process of quiting smoking smokes 1/2 pack daily Vaping Use Vaping Use: Some days Substances: Flavoring Devices: Pre-filled or refillable cartridge Substance Use Topics Alcohol use: Not Currently Alcohol/week: 10.0 - 15.0 standard drinks Types: 4 - 6 Cans of Beer (12oz) per week Comment: beer occasionally Drug use: No ACTIVE PROBLEM LIST Pain in Joint, Lower Leg Acute Meniscal Tear of Knee Tobacco Use S/P right knee arthroscopy, chondroplasty and partial lateral meniscectomy Depression Instability of Right Shoulder Joint Excessive Caffeine Abuse, Continuous (Hcc) Current Outpatient Medications Medication Sig Dispense Refill oxyCODONE IR (ROXICODONE) 5 mg immediate release tablet TAKE 1 TO 2 TABLETS BY MOUTH EVERY 6 HOURS nabumetone (RELAFEN) 500 mg tablet Take 500 mg by mouth twice daily. TAKE WITH FOOD. vortioxetine (TRINTELLIX) 5 mg tablet Take 1 tablet by mouth once daily. 30 tablet 2 dicyclomine (BENTYL) 10 mg capsule Take 1 capsule by mouth before meals and at bedtime. 60 capsule 1 terbinafine HCl (LAMISIL) 250 mg tablet Take 1 tablet by mouth once daily. (Patient not taking: Reported on 07/26/2022) 30 tablet 2 albuterol HFA (PROAIR HFA) 90 mcg/actuation inhaler Inhale 2 Puffs as instructed every 4 hours as needed. 1 Each 11 No current facility-administered medications for this visit. HEPATITIS B(1 of 3 - 3-dose series) Never done HEPATITIS C SCREENING Never done HIV SCREENING Never done DTAP,TDAP,TD(1 - Tdap) Never done COLORECTAL CANCER SCREENING Never done COVID-19 VACCINE(3 - Booster for Pfizer series) due on 02/12/2021 INFLUENZA(1) Never done LUNG CANCER SCREENING Never done SHINGRIX VACCINE(1 of 2) Never done EXAM: BP 98/62 Pulse 117 Resp 16 Wt 79.8 kg (176 lb) SpO2 96% BMI 24.55 kg/m Pleasant adult male in no acute distress. Alert and oriented all spheres. Mood mildly dysthymic, congruent affect, easy rapport. No perceptions. Normal cognition. Speech normal. No deficits to learning or comprehension. Skin warm, dry, pink to lips and nailbeds. Normal turgor. Respirations regular and unlabored. HEENT: NCAT. No scleral icterus or conjunctival injection. TM's clear. Nose and oropharynx free from injection or lesion. Oral membranes moist and pink. No cervical lymph nodes. Thyroid non-tender, no masses, or enlargement. Carotids pulses 2+/4+ without bruits. Chest is normal shape. Lungs are clear to all flowers with good air exchange through out. HRRR without murmur or gallop. No lifts, heaves, or rubs. Extrem: no clubbing or cyanosis. Edema: none. Extremities are warm and pink with prompt capillary refill. ASSESSMENT/PLAN: 1. Moderate episode of recurrent major depressive disorder (HCC) - ICD9: 296.32, ICD10: F33.1 (primary diagnosis) Increase Vortioxetine to 10mg, mychart progress in 4 weeks. 3 months follow up in office to review and HM catch up. - VORTIOXETINE 10 MG TABLET 2. Hyperglycemia - ICD9: 790.29, ICD10: R73.9 stable 3. Excessive caffeine abuse, continuous (HCC) - ICD9: 305.91, ICD10: F15.10 Continuous. Discussed affects on mood, behavior, sleep. 4. Instability of right shoulder joint - ICD9: 718.81, ICD10: M25.311 5. 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 Improving function, still painful. aPtel Rene PA-C documented in this encounter [facility] 07-26-2022 Note HNO ID: [id number] Author: Patel Rene PA-C Service: ? Author Type: Physician Pharmacists Type: Progress Notes Filed: 07/26/2022 1:05 PM Note Text: 52 year old male with c/o possible depression. Getting depressed thinking of mom, Chitra. Can't eat, gets diarrhea in five minutes. Trouble sleeping. If does sleep, sleeps for whole day. Stopped wellbutrin, venlafaxine in June- didn't feel it was doing much. Grief counseling Hospice was stopped- not sure why, didn't make much difference. Doing a lot of reminiscing. Emy daughter 14y/o has been on probation, criminal record, in counseling. . 06/23/2022 right knee arthroscopic for meniscus, microfracture. Off work. Feeling angry Prior medication trials include zolpidem, venlafaxine, sertraline, lorazepam, fluoxetine, escitalopram, bupropion. Also identifies was treated with Seroquel at [facility] which was terrible. PHQ-9 09/03/2020 10/13/2020 07/26/2022 Score 12 12 21 LÓPEZ - 7 SCORES 07/26/2022 LÓPEZ-7 Score 16 Oxycodone at night mostly post-op. Denies ETOH, tobacco, marijuana, other drugs. HISTORIES FAMILY HISTORY Problem Relation Age of Onset Ischemic Heart Disease Mother 50 Breast Cancer Mother other (Other) Mother B cell lymphoma Diabetes Father Hyperlipidemia Father Hypertension Father Ischemic Heart Disease Paternal Uncle 50 Colon Cancer Other none Prostate Cancer Other none PAST MEDICAL HISTORY Diagnosis Date Depression since 1992 following [id number] Excessive caffeine abuse, continuous (HCC) 05/07/2021 Internal derangement of right knee PAST SURGICAL HISTORY Procedure Laterality Date ARTHROSCOPY KNEE SURGICAL W/LAT RELEASE Right 06/08/2015 lateral meniscectomy and chondroplasty OPEN RX DIST RAD/ULNA FX Right 1981 TONSILLECTOMY PRIMARY/SECONDARY Tonsillectomy VASECTOMY UNI/BI SPX W/POSTOP SEMEN EXAMS Social History Tobacco Use Smoking status: Former Packs/day: 1.50 Years: 20.00 Pack years: 30.00 Types: Cigarettes Quit date: 08/11/2020 Years since quittin.9 Smokeless tobacco: Never Tobacco comments: in the process of quiting smoking smokes 1/2 pack daily Vaping Use Vaping Use: Some days Substances: Flavoring Devices: Pre-filled or refillable cartridge Substance Use Topics Alcohol use: Not Currently Alcohol/week: 10.0 - 15.0 standard drinks Types: 4 - 6 Cans of Beer (12oz) per week Comment: beer occasionally Drug use: No ACTIVE PROBLEM LIST Pain in Joint, Lower Leg Acute Meniscal Tear of Knee Tobacco Use S/P right knee arthroscopy, chondroplasty and partial lateral meniscectomy Depression Instability of Right Shoulder Joint Excessive Caffeine Abuse, Continuous (Hcc) Current Outpatient Medications Medication Sig Dispense Refill varenicline (CHANTIX) 1 mg tablet Take 0.5 tablets by mouth once daily for 3 days, THEN 0.5 tablets twice daily for 4 days, THEN 1 tablet twice daily for 23 days. 52 tablet 0 varenicline (CHANTIX) 1 mg tablet Take 1 tablet by mouth twice daily. 60 tablet 1 lidocaine (ASPERCREME) 4 % topical spray Apply 1 [place] to affected area every 8 hours as needed. 113 g 0 dicyclomine (BENTYL) 10 mg capsule Take 1 capsule by mouth before meals and at bedtime. 60 capsule 1 nicotine (NICODERM) 21 mg/24 hr Apply 1 Patch as directed every 24 hours. (Patient not taking: Reported on 12/14/2021 ) 30 Patch 1 venlafaxine ER (EFFEXOR XR) 150 mg 24 hr capsule Take 1 capsule by mouth once daily. 90 capsule 1 terbinafine HCl (LAMISIL) 250 mg tablet Take 1 tablet by mouth once daily. 30 tablet 2 buPROPion XL (WELLBUTRIN XL) 150 mg 24 hr tablet Take 1 tablet by mouth once daily. 30 tablet 1 albuterol HFA (PROAIR HFA) 90 mcg/actuation inhaler Inhale 2 Puffs as instructed every 4 hours as needed. 1 Each 11 COMPOUNDED PRESCRIPTION Counter force brace right arm Dx: lateral epicondylitis (tendinitis) M77.11 (Patient not taking: Reported on 05/23/2019 ) 1 Each 0 No current facility-administered medications for this visit. HEPATITIS B(1 of 3 - 3-dose series) Never done HEPATITIS C SCREENING Never done HIV SCREENING Never done DTAP,TDAP,TD(1 - Tdap) Never done COLORECTAL CANCER SCREENING Never done COVID-19 VACCINE(3 - Booster for Pfizer series) due on 02/12/2021 INFLUENZA(1) Never done LUNG CANCER SCREENING Never done SHINGRIX VACCINE(1 of 2) Never done EXAM: BP 110/60 Pulse 105 Resp 18 Wt 77.1 kg (170 lb) SpO2 99% BMI 23.71 kg/m? Pleasant well appearing adult man with crutches in no acute distress. Alert and oriented all spheres. Mood depressed with congruent affect Good rapport. Narrow focus Judgment intact No perceptions Respirations regular and unlabored. HEENT: NCAT. No scleral icterus or conjunctival injection. TM's clear. Nose and oropharynx free from injection or lesion. Oral membranes moist and pink. Extrem: no clubbing or cyanosis. Edema: none. Extremiti (more content not included)... [facility] 07-26-2022 History of Presen t illness Narrative 52 year old male with c/o possible depression. Getting depressed thinking of mom, Chitra. Can't eat, gets diarrhea in five minutes. Trouble sleeping. If does sleep, sleeps for whole day. Stopped wellbutrin, venlafaxine in June- didn't feel it was doing much. Grief counseling Hospice was stopped- not sure why, didn't make much difference. Doing a lot of reminiscing. Emy daughter 14y/o has been on probation, criminal record, in counseling. . 06/23/2022 right knee arthroscopic for meniscus, microfracture. Off work. Feeling angry Prior medication trials include zolpidem, venlafaxine, sertraline, lorazepam, fluoxetine, escitalopram, bupropion. Also identifies was treated with Seroquel at [facility] which was terrible. PHQ-9 09/03/2020 10/13/2020 07/26/2022 Score 12 12 21 LÓPEZ - 7 SCORES 07/26/2022 LÓPEZ-7 Score 16 Oxycodone at night mostly post-op. Denies ETOH, tobacco, marijuana, other drugs. HISTORIES FAMILY HISTORY Problem Relation Age of Onset Ischemic Heart Disease Mother 50 Breast Cancer Mother other (Other) Mother B cell lymphoma Diabetes Father Hyperlipidemia Father Hypertension Father Ischemic Heart Disease Paternal Uncle 50 Colon Cancer Other none Prostate Cancer Other none PAST MEDICAL HISTORY Diagnosis Date Depression since 1992 following [id number] Excessive caffeine abuse, continuous (HCC) 05/07/2021 Internal derangement of right knee PAST SURGICAL HISTORY Procedure Laterality Date ARTHROSCOPY KNEE SURGICAL W/LAT RELEASE Right 06/08/2015 lateral meniscectomy and chondroplasty OPEN RX DIST RAD/ULNA FX Right 1981 TONSILLECTOMY PRIMARY/SECONDARY <AGE 14 Tonsillectomy VASECTOMY UNI/BI SPX W/POSTOP SEMEN EXAMS Social History Tobacco Use Smoking status: Former Packs/day: 1.50 Years: 20.00 Pack years: 30.00 Types: Cigarettes Quit date: 08/11/2020 Years since quittin.9 Smokeless tobacco: Never Tobacco comments: in the process of quiting smoking smokes 1/2 pack daily Vaping Use Vaping Use: Some days Substances: Flavoring Devices: Pre-filled or refillable cartridge Substance Use Topics Alcohol use: Not Currently Alcohol/week: 10.0 - 15.0 standard drinks Types: 4 - 6 Cans of Beer (12oz) per week Comment: beer occasionally Drug use: No ACTIVE PROBLEM LIST Pain in Joint, Lower Leg Acute Meniscal Tear of Knee Tobacco Use S/P right knee arthroscopy, chondroplasty and partial lateral meniscectomy Depression Instability of Right Shoulder Joint Excessive Caffeine Abuse, Continuous (Hcc) Current Outpatient Medications Medication Sig Dispense Refill varenicline (CHANTIX) 1 mg tablet Take 0.5 tablets by mouth once daily for 3 days, THEN 0.5 tablets twice daily for 4 days, THEN 1 tablet twice daily for 23 days. 52 tablet 0 varenicline (CHANTIX) 1 mg tablet Take 1 tablet by mouth twice daily. 60 tablet 1 lidocaine (ASPERCREME) 4 % topical spray Apply 1 Berne to affected area every 8 hours as needed. 113 g 0 dicyclomine (BENTYL) 10 mg capsule Take 1 capsule by mouth before meals and at bedtime. 60 capsule 1 nicotine (NICODERM) 21 mg/24 hr Apply 1 Patch as directed every 24 hours. (Patient not taking: Reported on 12/14/2021 ) 30 Patch 1 venlafaxine ER (EFFEXOR XR) 150 mg 24 hr capsule Take 1 capsule by mouth once daily. 90 capsule 1 terbinafine HCl (LAMISIL) 250 mg tablet Take 1 tablet by mouth once daily. 30 tablet 2 buPROPion XL (WELLBUTRIN XL) 150 mg 24 hr tablet Take 1 tablet by mouth once daily. 30 tablet 1 albuterol HFA (PROAIR HFA) 90 mcg/actuation inhaler Inhale 2 Puffs as instructed every 4 hours as needed. 1 Each 11 COMPOUNDED PRESCRIPTION Counter force brace right arm Dx: lateral epicondylitis (tendinitis) M77.11 (Patient not taking: Reported on 05/23/2019 ) 1 Each 0 No current facility-administered medications for this visit. HEPATITIS B(1 of 3 - 3-dose series) Never done HEPATITIS C SCREENING Never done HIV SCREENING Never done DTAP,TDAP,TD(1 - Tdap) Never done COLORECTAL CANCER SCREENING Never done COVID-19 VACCINE(3 - Booster for Pfizer series) due on 02/12/2021 INFLUENZA(1) Never done LUNG CANCER SCREENING Never done SHINGRIX VACCINE(1 of 2) Never done EXAM: BP 110/60 Pulse 105 Resp 18 Wt 77.1 kg (170 lb) SpO2 99% BMI 23.71 kg/m Pleasant well appearing adult man with crutches in no acute distress. Alert and oriented all spheres. Mood depressed with congruent affect Good rapport. Narrow focus Judgment intact No perceptions Respirations regular and unlabored. HEENT: NCAT. No scleral icterus or conjunctival injection. TM's clear. Nose and oropharynx free from injection or lesion. Oral membranes moist and pink. Extrem: no clubbing or cyanosis. Edema: none. Extremities are warm and pink with prompt capillary refill. ASSESSMENT/PLAN: 1. Moderate episode of recurrent major depressive disorder (HCC) - ICD9: 296.32, ICD10: F33.1 Multiple failed trial with antidepressant therapy. Educated on new medication administration, warnings and cautions, common side effects, anticipated duration or therapy, and instructions on cessation management to avoid risks if stops medication. Patient choice was discussed in shared decision making. Encourage patient to have daily direct light exposure as often as possible for 10 to 15 minutes, journaling starting with his superficial thoughts and then progressing into what is underneath, role-playing to himself as if he were a friend and what his counseling would be, gratefulness practice, intentionally providing entertainment and seeking out relationships and experiences that bring him fine enjoy. Patient agrees that he will not use medication to harm himself, suicide risk is low. We discussed at length patient's conclusions that he is responsible for the of Chitra because he refused to accept her back from her last relationship. F/u 4 weeks - VORTIOXETINE 5 MG TABLET Patel Rene PA-C Some of this note may have been copied and pasted for the purpose of history context and comparison. documented in this encounter [facility] 03-15-2022 Miscellaneous Notes The following approved medication requests have been transmitted electronically. Requested Prescriptions Signed Prescriptions Disp Refills varenicline (CHANTIX) 1 mg tablet 52 tablet 0 Sig: Take 0.5 tablets by mouth once daily for 3 days, THEN 0.5 tablets twice daily for 4 days, THEN 1 tablet twice daily for 23 days. varenicline (CHANTIX) 1 mg tablet 60 tablet 1 Sig: Take 1 tablet by mouth twice daily. Patel Rene PA-C See request from pt. Tiara Perla Ma documented in this encounter [facility] 12-14-2021 History of Presen t illness Narrative Chief Complaint Patient presents with: Derm Problem: sunburn bilateral ankles HPI Allen Corona Jenn CHARLTON is a 51 year old male who presents here today for Above Complaints.. Patient was mowing on 12/06/21 and didn't have sunscreen on. Developed a really painful sunburn on his legs. Denies blisters. Has improved some but still painful. Noted some swelling around ankles. Past medical history, appointments, medications, allergies reviewed. Previous Medical History PAST MEDICAL HISTORY Diagnosis Date Depression since 1992 following [id number] Excessive caffeine abuse, continuous ([facility]) 05/07/2021 Internal derangement of right knee Previous Surgical History PAST SURGICAL HISTORY Procedure Laterality Date ARTHROSCOPY KNEE SURGICAL W/LAT RELEASE Right 06/08/2015 lateral meniscectomy and chondroplasty OPEN RX DIST RAD/ULNA FX Right 1981 TONSILLECTOMY PRIMARY/SECONDARY <AGE 14 Tonsillectomy VASECTOMY UNI/BI SPX W/POSTOP SEMEN EXAMS Family History FAMILY HISTORY Problem Relation Age of Onset Ischemic Heart Disease Mother 50 Breast Cancer Mother other (Other) Mother B cell lymphoma Diabetes Father Hyperlipidemia Father Hypertension Father Ischemic Heart Disease Paternal Uncle 50 Colon Cancer Other none Prostate Cancer Other none Patient Allergies ALLERGIES Allergen Reactions Penicillins childhood. Current Medications Current Outpatient Medications on File Prior to Visit Medication Sig dicyclomine (BENTYL) 10 mg capsule Take 1 capsule by mouth before meals and at bedtime. venlafaxine ER (EFFEXOR XR) 150 mg 24 hr capsule Take 1 capsule by mouth once daily. terbinafine HCl (LAMISIL) 250 mg tablet Take 1 tablet by mouth once daily. buPROPion XL (WELLBUTRIN XL) 150 mg 24 hr tablet Take 1 tablet by mouth once daily. albuterol HFA (PROAIR HFA) 90 mcg/actuation inhaler Inhale 2 Puffs as instructed every 4 hours as needed. nicotine (NICODERM) 21 mg/24 hr Apply 1 Patch as directed every 24 hours. (Patient not taking: Reported on 12/14/2021 ) COMPOUNDED PRESCRIPTION Counter force brace right arm Dx: lateral epicondylitis (tendinitis) M77.11 (Patient not taking: Reported on 05/23/2019 ) No current facility-administered medications on file prior to visit. Social History Social History Tobacco Use Smoking status: Former Smoker Packs/day: 1.50 Years: 20.00 Pack years: 30.00 Types: Cigarettes Quit date: 08/11/2020 Years since quittin.3 Smokeless tobacco: Never Used Tobacco comment: in the process of quiting smoking smokes 1/2 pack daily Vaping Use Vaping Use: Some days Substances: Flavoring Devices: Pre-filled or refillable cartridge Substance Use Topics Alcohol use: Not Currently Alcohol/week: 10.0 - 15.0 standard drinks Types: 4 - 6 Cans of Beer (12oz) per week Comment: beer occasionally Drug use: No Review of Symptoms REVIEW OF SYSTEMS see hpi EXAM: BP 102/80 (BP Site: Right Arm, BP Position: Sitting, BP Cuff Size: Large Adult) Pulse 84 Temp 36.4 C (97.6 F) Resp 16 Wt 79.8 kg (176 lb) BMI 24.55 kg/m General Appearance: Well appearing, alert, in no acute distress, well-hydrated, well nourished.. Skin: dark tanning and some redness noted on anterior side of b/l legs. Blanches to pressure. One area that it slightly edematous and tender on [place]le. Some peeling skin but no open blisters. . Health Maintenance List HEPATITIS C SCREENING Never done HIV SCREENING Never done DTAP,TDAP,TD(1 - Tdap) Never done COLORECTAL CANCER SCREENING Never done COVID-19 VACCINE(3 - Booster for Pfizer series) due on 05/20/2021 INFLUENZA(Season Ended) due on 03/10/2022 LIPID SCREEN due on 04/12/2023 DIABETES SCREEN due on 05/17/2024 Data reviewed ASSESSMENT/PLAN: 1. Sunburn - ICD9: 692.71, ICD10: L55.9 Continue symptom tx I will put on atb given concern for a possible secondary cellulitis developing. Advised patient to return if not improving. Sharmaine Benavides PA-C documented in this encounter [facility] Diagnosis Moderate episode of recurrent major depressive disorder (HCC)- Primary [facility] Diagnosis Moderate episode of recurrent major depressive disorder (HCC)- Primary Hyperglycemia Other abnormal glucose Excessive caffeine abuse, continuous (HCC) Other, mixed, or unspecified nondependent drug abuse, continuous Instability of right shoulder joint Other joint derangement, not elsewhere classified, shoulder region Hill Sachs deformity, right [facility] Diagnosis Excessive caffeine abuse, continuous (HCC)- Primary Other, mixed, or unspecified nondependent drug abuse, continuous Reactive depression Dysthymic disorder Instability of right shoulder joint Other joint derangement, not elsewhere classified, shoulder region S/P right knee arthroscopy, chondroplasty and partial lateral meniscectomy Other postprocedural status Acute meniscal tear of right knee, subsequent encounter Tobacco use Tobacco use disorder Gum abscess Aggressive periodontitis, unspecified Screening for colon cancer Special screening for malignant neoplasms, colon Special screening examination for viral disease Special screening examination for unspecified viral disease Encounter for immunization Need for other specified prophylactic vaccination against single bacterial disease Encounter for screening for lung cancer Screening for prostate cancer Special screening for malignant neoplasm of prostate Screening for lipid disorders Genital warts Condyloma acuminatum [facility] Diagnosis Preoperative clearance- Primary Preoperative examination, unspecified Leukocytosis, unspecified type [facility] Outpatient Procedure (Routine) - Pending Review Specialty Diagnoses / Procedures Referred By Lucio t Referred To [facility] Diagnoses Preoperative clearance Procedures ECG COMPLETE ECG ROUTINE ECG W/LEAST 12 LDS W/I&R Patel Rene PA-C [address] [place] [address] [facility] [place] [address] Referral ID Status Reason Start Date Expiration Date Visits Requested Visits Authorized [id number] Pending Review Auto-Generat ed Referral 06/13/2023 06/12/2024 1 1 [facility] Summary Purpose Family History No Family History Records FoundNo Family History Records FoundNo Family History Records FoundNo Family History Records Found Advance Directives No Advanced Directives Records FoundDocuments on File Type Date 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 Advance Directives and Livin g Will 01/08/2019 1:45 PM Latest Code Status on File Code Status Date Activated Date Inactivated Comments Full Code 01/09/2019 3:26 PM Full Code 01/08/2019 11:23 AM 01/09/2019 3:26 PM Hospital Course * Erik Ortiz MD - 01/09/2019 6:15 PM EDT HOSPITALIST DISCHARGE SUMMARY Patient: Allen Perez Account: [id number] Admitted: 01/08/2019 Discharge Date/Time: 01/09/2019 Clinical Summary REASON FOR HOSPITALIZATION/HPI: Patient presented with abdominal pain located mainly in the epigastric and right upper quadrant regions associated with multiple episodes of nausea and vomiting. After a while, it turned into dark old blood emesis. He denies any diarrhea. He still has some dry heaving and some abdominal pain. Denies any fever or chills. Denies any urinary symptoms. DIAGNOSES: Abdominal pain-located in the epigastric and right upper quadrant region. Etiology uncertain. -CT abdomen pelvis at [facility] [place] revealed small sludge in the gallbladder but no evidence of cholecystitis. It also revealed small focus of gas along the proximal duodenum, and distal esophageal thickening,and mild thickening of the transverse colon suggesting either under distention or colitis. -Managed with empiric antibiotics, IV fluids -N.p.o. -IV Protonix -Consulted surgery -Did undergo EGD that was completely unremarkable. Patient did not have any further abdominal pain,nausea, vomiting or hematemesis. -Patient stable for discharge home. He will follow with Dr. Chávez for possible colonoscopy as outpatient if he develops any further lower abdominal pain or diarrhea. Questionable hematemesis -Hemoglobin stable. -Given IV Protonix empirically. Follow hemoglobin remained stable. Seen by surgery, status post EGDthat was completely unremarkable. -Stable for discharge home. Questionable colitis -No further lower abdominal pain or diarrhea here. -Can follow-up with surgery as outpatient for colonoscopy should he develop any further lower abdominal pain or diarrhea. Questionable UTI - UA completely unremarkable. No symptoms either. Consultations: Surgery, Dr. Chávez Procedures: EGD Disposition: Home Lab Results Component Value Date GLUCOSE 87 01/09/2019 CALCIUM 8.7 01/09/2019 NA 143 01/09/2019 K 4.1 01/09/2019 CL 110 (H) 01/09/2019 BUN 15 01/09/2019 CREATININE 1.31 (H) 01/09/2019 Lab Results Component Value Date WBC 8.21 01/09/2019 HGB 14.3 01/09/2019 HCT 43.2 01/09/2019 MCV 90.4 01/09/2019 PLT 250 01/09/2019 US Abdomen Limited Study Final Result No sonographic evidence of cholelithiasis, gallbladder sludge, gallbladder wall thickening or pericholecystic fluid. No biliary ductal dilatation. [employer] Workstation ID: [id number] Procedures No orders of the defined types were placed in this encounter. Consults Procedures Inpatient consult to General Surgery Other Tests No orders of the defined types were placed in this encounter. Allergies Penicillin g Discharge Diet Diet Regular; Regular Disposition Discharge Medications Medication List START taking these medications famotidine 20 MG tablet Commonly known as: PEPCID Take 1 (one) tablet (20 mg total) by mouth daily . Where to Get Your Medications Information about where to get these medications is not yet available Ask your nurse or doctor about these medications famotidine 20 MG tablet Physician(s) Family: Provider Not in System, Phone: None, Address: None Follow Up: Douglas Chávze DO [address] [place] [address] Follow up in 2 week(s) Abdominal pain Patient instructions, including activity, were given to the patient/family at discharge. Please seethe After Visit Summary in the medical record for details. Time spent on discharge: > 30 minutes Completed by: Erik Ortiz on 01/09/19, 6:15 PM documented in this encounter History of Present Illness * Douglas Chávez DO - 01/09/2019 5:44 PM EDT Findings at endoscopy discussed. Questions answered. Tolerating diet without pain, n/v. Okay for discharge from surgical standpoint. He should follow up with his primary physician to get outpatient colonoscopy or he can follow up with me and I will schedule a colonoscopy. I discussed my impressions and recommendations with the patient. I explained my impressions as wellas diagnostic and treatment recommendations. I answered questions to the best of my ability and to his apparent satisfaction. documented in this encounter Reason for Referral Specialty Diagnoses / Procedures Referred By Lucio ojeda Referred To Contact Sharmaine Benavides PA-C [address] [place] [address] Referral ID Status Reason Start Date Expiration Date Visits Re quested Visits Authorized [id number] Closed 1 1 Specialty Diagnoses / Procedures Referred By Lucio ojeda Referred To Contact General Surgery Diagnoses Screening for colon cancer Procedures CONSULT TO GENERAL SURGERY OFFICE/OUTPATIENT [facility] 60-74 MINUTES Patel Rene PA-C [address] [place] [address] Referral ID Status Reason Start Date Expiration Date Visits Requested Visits Authorized [id number] Authorized PCP Requested Referral 12/29/2022 12/29/2023 1 1 Additional Source Comments (unrecognized sect ion and content) No Status Records FoundNo Status Records FoundNo Status Records FoundNo Status Records Found INFORMATION SOURCE (unrecogn ized section and content) DATE CREATED AUTHOR AUTHOR'S ORGANIZ ATION 03/06/2019 [facility] DATE CREATED AUTHOR AUTHOR'S ORGANIZ ATION 05/04/2021 [facility] ([place]) DATE CREATED AUTHOR AUTHOR'S ORGANIZ ATION 06/23/2023 [facility] Reason for Visit (unrecogniz ed section and content) Reason Comments Derm Problem sunburn bilateral an kles Reason Comments Depression Diarrhea Reason Comments Follow Up 4 week medication fo llow up Reason Comments Physical Reason Comments Orders Reason Comments Surgical Clearance Form Reason Comments Pre-Op Exam Right TKR 06/28/23 Douglas Chávez, - 01/09/2019 6:32 AM Douglas Stanley DO - 01/08/2019 8:41 PM EDTErik Ortiz MD - 01/08/2019 11:26 AM EDT H&P Notes (unrecognized sect ion and content) INTERVAL HISTORY AND PHYSICAL Patient Name: Allen Dye Admit Date: [id number] MR #: [id number] : 1970 The H&P has been reviewed and the patient has been examined. I concur with the findings of the H&P. There are no significant changes. It is appropriate to proceed with the planned procedure. Douglas Chávez DO 01/09/2019 6:32 AM CONSULT NOTE Patient Name: Allen Dye Admit Date: [id number] MR #: [id number] : 1970 Physicians: Provider Not in System (Family); Dominga Adair MD (Referring) Consulting Physician: Douglas Chávez DO Assessment: 1. Hematemesis. 2. Abdominal pain. 3. Abnormal CT abdomen and pelvis. 4. Rule out PUD/esophagitis. Plan/Recommendations: 1. Will schedule for EGD tomorrow. I reviewed the procedure, its risks, benefits and alternatives, including bleeding, perforation, reaction to or overdose from sedative medications. Questions answered. 2. Regular diet. NPO after midnight. Chief Complaint/Reason for Visit: abd pain; abnormal CT abdomen pelvis History of Present Illness: Allen Perez is a 48 y.o. y/o male I was asked to see regarding the above complaint. The patient states that between midnight and 0445 this morning he was vomiting blood. Associated with upper abdominal pain. The patient was incarcerated at the time, but has been released. He states there was a prodrome of the sensation of burning pain rising in his neck and he would know he had to vomit. He denies any history of heartburn or reflux. He denies any dysphagia or melena. No history of trauma. No history of similar symptoms in the past. He has never had an EGD or colonoscopy. He has been asymptomatic since this morning. He is hungry. He smokes 1.5 ppd x 31 years. He quit drinking last year. Allergy Information: I have reviewed the patient's allergies. Penicillin g Home Medications: No current outpatient medications on file as of 01/08/2019. History: History reviewed. No pertinent past medical history. History reviewed. No pertinent surgical history. Social History Socioeconomic History Marital status: Legally Spouse name: Not on file Number of children: Not on file Years of education: Not on file Highest education level: Not on file Occupational History Not on file Social Needs Financial resource strain: Not on file Food insecurity: Worry: Not on file Inability: Not on file Transportation needs: Medical: Not on file Non-medical: Not on file Tobacco Use Smoking status: Former Smoker Smokeless tobacco: Former User Substance and Sexual Activity Alcohol use: Not Currently Drug use: Not Currently Sexual activity: Not on file Lifestyle Physical activity: Days per week: Not on file Minutes per session: Not on file Stress: Not on file Relationships Social connections: Talks on phone: Not on file Gets together: Not on file Attends church service: Not on file Active member of club or organization: Not on file Attends meetings of clubs or organizations: Not on file Relationship status: Not on file Other Topics Concern Not on file Social History Narrative Not on file History reviewed. No pertinent family history. Review of Systems: The following system(s) were reviewed and pertinent findings noted: All other systems reviewed and negative other than HPI Physical Examination: Vital Signs: BP 113/70 Pulse 71 Temp 98.3 F (36.8 C) (Oral) Resp 16 Ht 5' 10 Wt 77.9 kg (171 lb 11.8 oz) SpO2 96% BMI 24.64 kg/m Body mass index is 24.64 kg/m . General: AAOx3, NAD Head: Normocephalic, without obvious abnormality, atraumatic Eyes: anicteric Throat: Lips, mucosa, and tongue normal Neck: Supple, symmetrical, trachea midline, no adenopathy Back: no CVA tenderness Lungs: Clear to auscultation bilaterally, respirations unlabored,normal respiratory effort Chest Wall: No tenderness or deformity Cardiovascular: Regular rate and rhythm,no murmur Abdomen: Soft, non-tender, bowel sounds normal,no masses or organomegaly Extremities: No cyanosis, clubbing, edema or rashes. Skin: Skin color, texture, turgor normal, no rashes or lesions Psych: Mood and affect appropriate Laboratory and Additional Data Reviewed: Laboratory 01/08/19 8:58 PM Normal lipase and amylase at [facility] [place]. Allen Perez #[id number] (CSN:[id number]) (48 y.o. M) (Adm: 01/08/19) [facility] 2N-261-B Results Procedure Component Value Units Date/Time Troponin [[id number]] Collected: 01/08/19 1838 Specimen: Blood Updated: 01/08/19 1925 Troponin I <15 ng/L Interp Troponin I Delta Change No biomarker evidence of cardiac injury. Urinalysis [[id number]] (Abnormal) Collected: 01/08/19 1540 Specimen: Urine Updated: 01/08/19 1554 Color, Urine Yellow Clarity, Urine Clear Specific [place] 1.009 pH, Urine 8.0High Protein, Urine Negative mg/dL Glucose, Urine Negative mg/dL Ketones, Urine Negative mg/dL Bilirubin, Urine Negative Urobilinogen, Urine <2.0 mg/dL Blood, Urine Negative Nitrite, Urine Negative Leukocyte Esterase, Urine Negative Bacteria, Urine None Seen /hpf Amorphous Crystals Rare /hpf Narrative: Microscopic examination is performed on all urinalysis samples and only positive findings are reported. The test for blood on the chemical analytic portion of urinalysis may also be positive due to hemoglobinuria and myoglobinuria and if red blood cells are present they are quantified by microscopic examination. Troponin [[id number]] Collected: 01/08/19 1512 Specimen: Blood Updated: 01/08/19 1542 Troponin I <15 ng/L Interp Troponin I Delta Change No biomarker evidence of cardiac injury. Lactic Acid, Plasma [[id number]] (Normal) Collected: 01/08/19 114 Specimen: Blood Updated: 01/08/19 1218 Lactic Acid 1.4 mmol/L Troponin [[id number]] Collected: 01/08/19 114 Specimen: Blood Updated: 01/08/19 1217 Troponin I <15 ng/L Troponin I Interpretation Normal Comprehensive Metabolic Panel [[id number]] (Abnormal) Collected: 01/08/19 114 Specimen: Blood Updated: 01/08/19 1217 Sodium 140 mmol/L Potassium 4.2 mmol/L Chloride 107 mmol/L Bicarbonate 31 mmol/L Anion Gap 6Low mmol/L Glucose 105High mg/dL BUN 12 mg/dL Creatinine 1.17 mg/dL eGFR 74 mL/min/1.73 m2 eGFR 86 mL/min/1.73 m2 BUN/Creatinine Ratio 10.3 Total Protein 7.2 g/dL Albumin 3.8 g/dL Calcium 9.0 mg/dL Alkaline Phosphatase 77 U/L AST 19 U/L Total Bilirubin 0.7 mg/dL ALT 37 U/L Narrative: The eGFR should be used for monitoring renal function only and not for medication dosing. CBC and Differential [[id number]] Collected: 01/08/191144 Specimen: Blood Updated: 01/08/19 115 Narrative: The following orders were created for panel order CBC and Differential. Procedure Abnormality Status --------- ------ CBC Auto Differential[[id number]] Abnormal Final result Please view results for these tests on the individual orders. CBC Auto Differential [[id number]] (Abnormal) Collected: 01/08/191144 Specimen: Blood Updated: 01/08/19 115 WBC 10.97 K/mcL RBC 4.74 M/mcL Hemoglobin 14.3 g/dL Hematocrit 41.1 % MCV 86.7 fL MCH 30.2 pg MCHC 34.8 g/dL Platelets 240 K/mcL RDW - CV 12.6 % MPV 10.3 fL Neutrophils 72.1 % Lymphocytes 18.7 % Monocytes 8.2 % Eosinophils 0.2 % Basophils 0.4 % IG Percent 0.40 % Neutrophils Abs 7.92High K/mcL Lymphocytes Abs 2.05 K/mcL Monocytes Abs 0.90 K/mcL Eosinophils Abs 0.02 K/mcL Basophils Abs 0.04 K/mcL IG Absolute 0.04 K/mcL Nucleated RBC 0.0 % Nucleated RBC Abs 0.00 K/mcL Microbiology 01/08/19 8:58 PM These results are sorted by the time result was reported, with newest results at the top. Microbiology Results (last 7 days) Procedure Component Value Units Date/Time Urine Aerobic Culture [[id number]] Collected: 01/08/19 1540 Order Status: Sent Specimen: Urine, Clean Catch Updated: 01/08/19 1540 Radiology 01/08/19 8:[address] [facility] [place] reviewed. Possible ulcer in the stomach and thickening of esophagus. Medications 01/08/19 8:58 PM Transcriptions 01/08/19 8:58 PM HISTORY AND PHYSICAL Patient Name: Allen Perez Admit Date: 7010718 MR #: [id number] : 1970 Physicians: No primary care provider on file. (Family); Dominga Adair MD (Referring) Chief Complaint/Reason for Visit: Abdominal pain History of Present Illness: Allen Perez is a 48 y.o. male presenting from [facility] with above c/o. Patient presented here as a direct admission from [facility]. He was brought to [facility] from local skilled nursing where he was incarcerated, now he is released. Patient says he has been having some abdominal pain located mainly in the epigastric and right upper quadrant regions associated with multiple episodes of nausea and vomiting. After a while, it turned into dark old blood emesis. He denies any diarrhea. He still has some dry heaving and some abdominal pain. Denies any fever or chills. Denies any urinary symptoms. He was evaluated at [facility]. CBC-mildly elevated white cell count 15.2. Hemoglobin 15.3. Platelets are 256. Lipase is 117. Basic metabolic panel BUN is 15, creatinine 1.2. LFTs are normal. Bilirubin is normal. INR is 0.99. PTT is normal. CT abdomen pelvis revealed small sludge in the gallbladder but no evidence of cholecystitis. It also revealed small focus of gas along the proximal duodenum, and distal esophageal thickening, and mild thickening of the transverse colon suggesting either under distention or colitis. Patient was transferred here for further evaluation. History: History reviewed. No pertinent past medical history. History reviewed. No pertinent surgical history. History reviewed. No pertinent family history. Social History Socioeconomic History Marital status: Not on file Spouse name: Not on file Number of children: Not on file Years of education: Not on file Highest education level: Not on file Occupational History Not on file Social Needs Financial resource strain: Not on file Food insecurity: Worry: Not on file Inability: Not on file Transportation needs: Medical: Not on file Non-medical: Not on file Tobacco Use Smoking status: Former Smoker Smokeless tobacco: Former User Substance and Sexual Activity Alcohol use: Not Currently Drug use: Not Currently Sexual activity: Not on file Lifestyle Physical activity: Days per week: Not on file Minutes per session: Not on file Stress: Not on file Relationships Social connections: Talks on phone: Not on file Gets together: Not on file Attends church service: Not on file Active member of club or organization: Not on file Attends meetings of clubs or organizations: Not on file Relationship status: Not on file Other Topics Concern Not on file Social History Narrative Not on file Living Arrangements: Spouse/significant other, Family members Support Systems: Spouse/significant other, Children, Family members Functional Status: Independent Review of Systems: All systems reviewed, and are otherwise negative. Allergy Information: I have reviewed the patient's allergies. Penicillin g Home Medications: No current outpatient medications on file as of 01/08/2019. There are no discharge medications for this patient. Physical Examination: Vital Signs: BP 137/81 Pulse 74 Temp 97.5 F (36.4 C) (Oral) Resp (!) 20 Ht 5' 10 Wt 77.9 kg (171 lb 11.8 oz) SpO2 98% BMI 24.64 kg/m General appearance: Alert, awake, Non-toxic appearing, and in no acute distress. HEENT: Head- normocephalic, atraumatic. Eyes - OSWALDO bilaterally and EOMI. Normal sclerae. Ears - normal external appearance, hearing intact. Nose - normal, no erythema. Throat- mucous membranes moist, pharynx without lesions. Neck: supple, trachea midline. Cardiovascular: Regular, S1,S2 normal. No murmurs, rubs, clicks or gallops. no pedal edema. Respiratory: Lungs clear to auscultation, No wheezes, rales or rhonchi. Abdomen: Soft, mild epigastric tenderness, nondistended ; active bowel sounds. No masses or organomegaly. Neurological: Alert, oriented X 3. Grossly normal motor and sensory exam. No focal deficits. Musculoskeletal: No joint tenderness, deformity or swelling. Skin: Normal coloration and turgor. No rashes. Psych: Normal mood and effect Laboratory and Additional Data Reviewed: Laboratory 01/08/19 11:26 AM Radiology 01/08/19 11:26 AM Cardiology 01/08/19 11:26 AM Medications 01/08/19 11:26 AM Transcriptions 01/08/19 11:26 AM No results found for: WBC, HGB, HCT, MCV, PLT No results found for: GLUCOSE, CALCIUM, NA, K, CL, BUN, CREATININE No results found for: ALT, AST, GGT, ALKPHOS, BILITOT No results found for: CKTOTAL, CKMB, HSCRP, TROPONINI No orders to display Assessment and Plan: Abdominal pain-located in the epigastric and right upper quadrant region. Etiology uncertain. -CT abdomen pelvis at [facility] [place] revealed small sludge in the gallbladder but no evidence of cholecystitis. It also revealed small focus of gas along the proximal duodenum, and distal esophageal thickening, and mild thickening of the transverse colon suggesting either under distention or colitis. -Start empiric antibiotics, IV fluids -N.p.o. -IV Protonix -Consult surgery for GI scopes Questionable hematemesis -Hemoglobin stable. Follow hemoglobin closely. Continue IV Protonix and consult surgery for GI scopes Questionable colitis -Continue antibiotics, and follow stool studies consult surgery Questionable UTI -Check UA and continue antibiotics documented in this encounter Douglas Chávez DO - 01/08/2019 8:41 PM EDT Consult Notes (unrecognized section and content) Associated Order(s): IP CONSULT TO GENERAL SURGERY CONSULT NOTE Patient Name: Allen Perez Admit Date: [id number] MR #: [id number] : 1970 Physicians: Provider Not in System (Family); Dominga Adair MD (Referring) Consulting Physician: Douglas Chávez DO Assessment: 1. Hematemesis. 2. Abdominal pain. 3. Abnormal CT abdomen and pelvis. 4. Rule out PUD/esophagitis. Plan/Recommendations: 1. Will schedule for EGD tomorrow. I reviewed the procedure, its risks, benefits and alternatives, including bleeding, perforation, reaction to or overdose from sedative medications. Questions answered. 2. Regular diet. NPO after midnight. Chief Complaint/Reason for Visit: abd pain; abnormal CT abdomen pelvis History of Present Illness: Allen Perez is a 48 y.o. y/o male I was asked to see regarding the above complaint. The patient states that between midnight and 444 this morning he was vomiting blood. Associated with upper abdominal pain. The patient was incarcerated at the time, but has been released. He states there was a prodrome of the sensation of burning pain rising in his neck and he would know he had to vomit. He denies any history of heartburn or reflux. He denies any dysphagia or melena. No history of trauma. No history of similar symptoms in the past. He has never had an EGD or colonoscopy. He has been asymptomatic since this morning. He is hungry. He smokes 1.5 ppd x 31 years. He quit drinking last year. Allergy Information: I have reviewed the patient's allergies. Penicillin g Home Medications: No current outpatient medications on file as of 01/08/2019. History: History reviewed. No pertinent past medical history. History reviewed. No pertinent surgical history. Social History Socioeconomic History Marital status: Legally Spouse name: Not on file Number of children: Not on file Years of education: Not on file Highest education level: Not on file Occupational History Not on file Social Needs Financial resource strain: Not on file Food insecurity: Worry: Not on file Inability: Not on file Transportation needs: Medical: Not on file Non-medical: Not on file Tobacco Use Smoking status: Former Smoker Smokeless tobacco: Former User Substance and Sexual Activity Alcohol use: Not Currently Drug use: Not Currently Sexual activity: Not on file Lifestyle Physical activity: Days per week: Not on file Minutes per session: Not on file Stress: Not on file Relationships Social connections: Talks on phone: Not on file Gets together: Not on file Attends church service: Not on file Active member of club or organization: Not on file Attends meetings of clubs or organizations: Not on file Relationship status: Not on file Other Topics Concern Not on file Social History Narrative Not on file History reviewed. No pertinent family history. Review of Systems: The following system(s) were reviewed and pertinent findings noted: All other systems reviewed and negative other than HPI Physical Examination: Vital Signs: BP 113/70 Pulse 71 Temp 98.3 F (36.8 C) (Oral) Resp 16 Ht 5' 10 Wt 77.9 kg (171 lb 11.8 oz) SpO2 96% BMI 24.64 kg/m Body mass index is 24.64 kg/m . General: AAOx3, NAD Head: Normocephalic, without obvious abnormality, atraumatic Eyes: anicteric Throat: Lips, mucosa, and tongue normal Neck: Supple, symmetrical, trachea midline, no adenopathy Back: no CVA tenderness Lungs: Clear to auscultation bilaterally, respirations unlabored,normal respiratory effort Chest Wall: No tenderness or deformity Cardiovascular: Regular rate and rhythm,no murmur Abdomen: Soft, non-tender, bowel sounds normal,no masses or organomegaly Extremities: No cyanosis, clubbing, edema or rashes. Skin: Skin color, texture, turgor normal, no rashes or lesions Psych: Mood and affect appropriate Laboratory and Additional Data Reviewed: Laboratory 01/08/19 8:58 PM Normal lipase and amylase at [facility] [place]. Allen Perez #[id number] (CSN:[id number]) (48 y.o. M) (Adm: 01/08/19) [facility] 2N-261-B Results Procedure Component Value Units Date/Time Troponin [[id number]] Collected: 01/08/19 1838 Specimen: Blood Updated: 01/08/19 1925 Troponin I <15 ng/L Interp Troponin I Delta Change No biomarker evidence of cardiac injury. Urinalysis [[id number]] (Abnormal) Collected: 01/08/19 1540 Specimen: Urine Updated: 01/08/19 1554 Color, Urine Yellow Clarity, Urine Clear Specific [place] 1.009 pH, Urine 8.0High Protein, Urine Negative mg/dL Glucose, Urine Negative mg/dL Ketones, Urine Negative mg/dL Bilirubin, Urine Negative Urobilinogen, Urine <2.0 mg/dL Blood, Urine Negative Nitrite, Urine Negative Leukocyte Esterase, Urine Negative Bacteria, Urine None Seen /hpf Amorphous Crystals Rare /hpf Narrative: Microscopic examination is performed on all urinalysis samples and only positive findings are reported. The test for blood on the chemical analytic portion of urinalysis may also be positive due to hemoglobinuria and myoglobinuria and if red blood cells are present they are quantified by microscopic examination. Troponin [[id number]] Collected: 01/08/19 1512 Specimen: Blood Updated: 01/08/19 1542 Troponin I <15 ng/L Interp Troponin I Delta Change No biomarker evidence of cardiac injury. Lactic Acid, Plasma [[id number]] (Normal) Collected: 01/08/19 114 Specimen: Blood Updated: 01/08/19 1218 Lactic Acid 1.4 mmol/L Troponin [[id number]] Collected: 01/08/19 114 Specimen: Blood Updated: 01/08/19 1217 Troponin I <15 ng/L Troponin I Interpretation Normal Comprehensive Metabolic Panel [[id number]] (Abnormal) Collected: 01/08/19 114 Specimen: Blood Updated: 01/08/19 1217 Sodium 140 mmol/L Potassium 4.2 mmol/L Chloride 107 mmol/L Bicarbonate 31 mmol/L Anion Gap 6Low mmol/L Glucose 105High mg/dL BUN 12 mg/dL Creatinine 1.17 mg/dL eGFR 74 mL/min/1.73 m2 eGFR 86 mL/min/1.73 m2 BUN/Creatinine Ratio 10.3 Total Protein 7.2 g/dL Albumin 3.8 g/dL Calcium 9.0 mg/dL Alkaline Phosphatase 77 U/L AST 19 U/L Total Bilirubin 0.7 mg/dL ALT 37 U/L Narrative: The eGFR should be used for monitoring renal function only and not for medication dosing. CBC and Differential [[id number]] Collected: 01/08/19 114 Specimen: Blood Updated: 01/08/19 1155 Narrative: The following orders were created for panel order CBC and Differential. Procedure Abnormality Status --------- ------ CBC Auto Differential[[id number]] Abnormal Final result Please view results for these tests on the individual orders. CBC Auto Differential [[id number]] (Abnormal) Collected: 01/08/19 1145 Specimen: Blood Updated: 01/08/19 1155 WBC 10.97 K/mcL RBC 4.74 M/mcL Hemoglobin 14.3 g/dL Hematocrit 41.1 % MCV 86.7 fL MCH 30.2 pg MCHC 34.8 g/dL Platelets 240 K/mcL RDW - CV 12.6 % MPV 10.3 fL Neutrophils 72.1 % Lymphocytes 18.7 % Monocytes 8.2 % Eosinophils 0.2 % Basophils 0.4 % IG Percent 0.40 % Neutrophils Abs 7.92High K/mcL Lymphocytes Abs 2.05 K/mcL Monocytes Abs 0.90 K/mcL Eosinophils Abs 0.02 K/mcL Basophils Abs 0.04 K/mcL IG Absolute 0.04 K/mcL Nucleated RBC 0.0 % Nucleated RBC Abs 0.00 K/mcL Microbiology 01/08/19 8:58 PM These results are sorted by the time result was reported, with newest results at the top. Microbiology Results (last 7 days) Procedure Component Value Units Date/Time Urine Aerobic Culture [[id number]] Collected: 01/08/19 1540 Order Status: Sent Specimen: Urine, Clean Catch Updated: 01/08/19 1540 Radiology 01/08/19 8:[address] [facility] [place] reviewed. Possible ulcer in the stomach and thickening of esophagus. Medications 01/08/19 8:58 PM Transcriptions 01/08/19 8:58 PM documented in this encounter Hellen Arango RN - 01/09/2019 3:05 PM EDT Nursing Notes (unrecognized section and content) [id number] All vital signs and medications will be documented by Kenroy during procedure. documented in this encounter Brief Op Note - Douglas Chávez DO - 01/09/2019 3:25 PM EDTPlan of Care - Mary Kay Regalado RN - 01/09/2019 1:00 AM EDTPlan of Care - Michelle Blake RN - 01/08/2019 9:06 AM EDT Miscellaneous Notes (unrecog nized section and content) Brief Post Operative Note Patient Name: Allen Perez : 1970 (48 y.o.) Date of Service: 01/08/2019 - 01/09/2019 CSN: [id number] Procedure(s): ESOPHAGOGASTRODUODENOSCOPY Pre-Operative Diagnoses: * Abdominal pain Post-Operative Diagnoses: * Hematemesis with nausea [K92.0] * Right upper quadrant abdominal pain [R10.11] * Epigastric pain [R10.13] Surgeon(s) and Role: * Douglas Chávez DO - Primary POLYSOMNOGRAPHER: Esau Sewell CRNA Hobber: Kiley Hoskins LPN Endoscopy Nurse: Hellen Arango RN Operative findings: Normal EGD. No evidence of active bleeding, fresh or old blood in the lumen. - discussed with family. - follow up with primary. Intra and immediate post-operative complications: None. Type of anesthesia used: Monitor Anesthesia Care Estimated blood loss: 0 mL Estimated urine output: Refer to surgical log Specimen(s): * No specimens in log * Implant(s): * No implants in log * Drain(s): * No LDAs found * Wound(s): * No LDAs found * Douglas Chávez DO 01/09/2019 3:25 PM POC reviewed. On IV ATB. NPO after midnight for EGD later today. Problem: Actual or potential alteration in health Goal: Knowledge of Enviroment Outcome: Partially Met Note: Patient oriented to room and equipment. Patient has no needs at this time. Will continue to monitor.Call light within reach. Problem: Pain Goal: Manage acute pain Outcome: Partially Met documented in this encounter Source Comments (unrecognize d section and content) In the event this informatio n is protected by the Federal Confidentiality of Alcohol and Drug Abuse Patient Records regulations: The Federal rules restrict any use of the information to criminally investigate or prosecute any alcohol or drug abuse patient.[facility] the event this information is protected by the Federal Confidentiality of Alcohol and Drug Abuse Patient Records regulations: The Federal rules restrict any use of the information to criminally investigate or prosecute any alcohol or drug abuse patient.[facility] the event this information is protected by the Federal Confidentiality of Alcohol and Drug Abuse Patient Records regulations: The Federal rules restrict any use of the information to criminally investigate or prosecute any alcohol or drug abuse patient.[facility] the event this information is protected by the Federal Confidentiality of Alcohol and Drug Abuse Patient Records regulations: The Federal rules restrict any use of the information to criminally investigate or prosecute any alcohol or drug abuse patient.[facility] the event this information is protected by the Federal Confidentiality of Alcohol and Drug Abuse Patient Records regulations: The Federal rules restrict any use of the information to criminally investigate or prosecute any alcohol or drug abuse patient.[facility] the event this information is protected by the Federal Confidentiality of Alcohol and Drug Abuse Patient Records regulations: The Federal rules restrict any use of the information to criminally investigate or prosecute any alcohol or drug abuse patient.[facility] the event this information is protected by the Federal Confidentiality of Alcohol and Drug Abuse Patient Records regulations: The Federal rules restrict any use of the information to criminally investigate or prosecute any alcohol or drug abuse patient.[facility] the event this information is protected by the Federal Confidentiality of Alcohol and Drug Abuse Patient Records regulations: The Federal rules restrict any use of the information to criminally investigate or prosecute any alcohol or drug abuse patient.[facility] Care Teams (unrecognized sec tion and content) Distillery Supervisor Relationship Specialty Start Date End Date Patel Rene PA-C [address] [place] [address] PCP - General Family Practice 10/31/16 Distillery Supervisor Relationship Specialty Start Date End Date Patel Rene PA-C [address] [place] [address] PCP - General Family Medicine 10/31/16 Distillery Supervisor Relationship Specialty Start Date End Date Patel Rene PA-C [address] [place] [address] PCP - General Family Medicine 10/31/16 Distillery Supervisor Relationship Specialty Start Date End Date Patel Rene PA-C [address] [place] [address] PCP - General Family Medicine 10/31/16 Distillery Supervisor Relationship Specialty Start Date End Date Patel Rene PA-C [address] [place] [address] PCP - General Family Medicine 10/31/16 Distillery Supervisor Relationship Specialty Start Date End Date Patel Rene PA-C [address] [place] [address] PCP - General Family Medicine 10/31/16 FOR RECORDS PERTAINING TO PATIENTS WHO ARE OR HAVE BEEN ENROLLED IN A CHEMICAL DEPENDENCY/SUBSTANCEABUSE PROGRAM, SOME INFORMATION MAY BE OMITTED. This clinical summary was aggregated from multiple sources. Caution should be exercised in using it in the provision of clinical care. This summary normalizes information from multiple sources, and as a consequence, information in this document may materially change the coding, format and clinical context of patient data. In addition, data may be omitted in some cases. CLINICAL DECISIONS SHOULD BE BASED ON THE PRIMARY CLINICAL RECORDS. [facility]. provides no warranty or guarantee of the accuracy or completeness of information in this document.
[2023-06-28] MEDS: Magnesium 1 GM over 15 mins IV (06:38)
[2023-06-28] MEDS: Celecoxib 200 MG Capsule 400 MG PO (06:39)
[2023-06-28] MEDS: Gabapentin 600 MG Tablet PO (06:40)
[2023-06-28] MEDS: Acetaminophen 500 MG Tablet 1000 MG PO (06:40)
[2023-06-28 07:18] LABS: Bedside Glucose 100 mg/dL (74-106)
[2023-06-28] MEDS: Cefazolin 2 GM in 0.9% Normal Saline (100mL Bag) 100 ML IV (07:28)
[2023-06-28] MEDS: TXA 1000mg in NS100 100ml (IVPB at Incision) 660 MG IV (07:38)
[2023-06-28] MEDS: Lactated Ringers 1,000 ML 75 ML IV (08:00)
[2023-06-28] MEDS: TXA 1000mg in NS100 100ml (IVPB at Closure) 660 MG IV (08:23)
--- NOTE | 2023-06-28 08:33 | PCM.OPRPT ---
Report of Operation Date of Procedure: 06/28/23 Pre-Operative Diagnosis: Right knee primary osteoarthritis Post-Operative Diagnosis: Right knee primary osteoarthritis Surgery/Procedure Performed:: Right minimally invasive robotic total knee replacement Description of Surgical Findings:: Stable knee with good patella tracking. Grade 4 chondral lesions on the trochlea and medial compartment. Patient still had appropriate patellar cartilage patella was not resurfaced. Surgeon: Kareem Purcell occupational therapy assist: Dany Roque Type of Anesthesia: Spinal Anesthesiologist: Rao Morrow Special Medications: 2 g Ancef, 1 g TXA at incision, 1 g TXA closure, 10 mg Decadron, joint cocktail (5 mg Duramorph, 30 mL of 0.5% Ropivicaine, 1000 units of epinephrine, 30 mg of Toradol) Specimen's removed: Bony cuts Estimated Blood Loss (mL): 25 Fluids Replaced: 1800 mL crystalloid Description of Procedure: Implants used: 1. Jai size 6 triathlon cruciate retaining distal femoral press-fit component 2. [place] size 6 press-fit tritanium tibial baseplate 3. [place] X3 9 mm CS polyethylene Brief history operative indications: 53-year-old M with history of right knee osteoarthritis with radiographic findings with loss of joint space, osteophyte formation and subchondral sclerosis. Failed conservative measures as mentioned in the H&P. Discussion of total knee arthroplasty as well as risk and benefits were discussed the patient including but not limited to blood loss, DVTs, PEs, neurovascular damage, general risk of anesthesia including loss of life, and stiffness or instability were discussed with patient. Patient demonstrated understanding and was able to sign informed consent. Procedure: On the date of procedure patient's right lower extremity was marked in the preoperative area. The patient was then taken back to the operating room where the patient was placed on the table in the supine position. All bony prominences were identified a well-padded. Anesthesia assumed control of the C-spine and airway and remained controlled throughout the remainder of the procedure. A tourniquet was placed on the right upper thigh and the leg was prepped in a sterile fashion. The surgeon then scrubbed at this time .Upon reentering the room right lower extremity was draped in a standard orthopedic fashion. A timeout was then called and everyone agreed upon the side, the site, the procedure to be performed, patient's identity and antibiotics given. Esmarch bandage was used to exsanguinate the extremity and the tourniquet was placed up to 250 mmHg with the knee in flexion. A midline skin incision was made and sharp dissection was taken down through skin subcutaneous tissue and fat. The standard medial parapatellar incision was made and the patella was subluxed laterally. An Appropriate deep MCL release was done and the fat pad was resected. Our attention was then directed to the patella. The patella was everted and cartilage was examined. At this time cartilage was felt to be appropriate to maintain the anatomic patella so we did not resurface it. The knee was then flexed up in 2 femoral pins were placed inside the incision and 2 tibial pins were placed outside the incision in the medial tibia bicortically. Once this was completed the 2 checkpoints in the femur and tibia were placed. Knee was then flexed up and the bony landmarks were registered. Once this was completed knee was taken through range of motion and manually stressed allowing us to a plan for an appropriate tibial cut. The robotic arm was brought into the field sterilely and checkpoint and saw were registered. Based on the patient's deformity the tibial cut was made neutral to the tibial axis. At this time the tensioner was then placed in the joint and ligament tension was checked at 90 degrees and full extension. Based on the patient's ligamentous tension appropriate adjustments were made to the operative plan and ligament releases were done. Once we were happy with our operative plan with balanced flexion and extension gaps our attention was directed to the femur. The robot was brought into the field sterilely and registered. Posterior condylar cuts, anterior chamfer cuts and anterior cuts were appropriately made for a size 6 femur. When these were completed the saws were switched out in the distal femoral and posterior chamfer cuts were made. Protecting the soft tissue throughout this time. A size 6 tibial base plate was selected. the knee was flexed to 90 degrees and the soft tissues and posterior osteophytes were removed from the joint. 40 cc of the periarticular injection was injected into the posterior medial corner of the joint. The appropriate trials were then placed on the femur and tibia. A trial polyethylene was trialed to ensure proper balancing and stability of the knee. The appropriate tibial internal rotation was then marked with a bovie. Our attention was then directed to the patella. The lug holes were drilled and the patella trial was placed. Patellar tracking was checked and deemed appropriate. Once we were happy lug holes were drilled for the femur and trial components were removed. the tibia was subluxed and pinned into place and the keel was punched and drilled appropriately. Final components were verified and opened, and cement was mixed in a vacuum. Screen Simplex cement was used. The wound was copiously irrigated with normal saline. When the cement was ready the components were impacted into place starting with the tibia, femur. The trial poly component was placed and the knee was placed in full extension. All excess cement was removed in the process. Once the cement had cured the tracking, alignment and balance were verified and a size 9 mm CS polyethylene component was placed. Once the final components were placed a 3-minute dilute Betadine lavage was performed followed by an Irrisept lavage was performed and the wound was copiously irrigated with normal saline solution and the periarticular injection was given. The wound was closed in a layer orellana fashion using #1 vicryl interrupted sutures for the arthrotomy, 2-0 interrupted Vicryl suture for the subcuticular layer and carlene for final skin closure. A sterile compressive dressing was then placed. The patient was then awakened from anesthesia, transferred to the [facility] and transferred to the PACU for recovery. Post op plan DVT ppx: ASA 81mg BID, thigh high compression stockings Follow up: in office in 2 weeks for wound check PT: to start POD #0 at hospital, outpatient PT should be arranged. My physician certified nursing assistant was a vital part of this case. He was important in appropriate retraction during the case, and protection of soft tissues during bony cuts. His intimate knowledge of the case and my steps aided in safe and expedient completion of the procedure as well as appropriate position of the leg during the case. He was also vital in assisting with closure under my direct supervision. Due to the complexity of this case robotic arm was used to assist in the surgery to improve accuracy and clinical outcomes. Complications No intraoperative complications Admit VTE Documentation VTE Present on Admission: No VTE Mechan Device Prophylaxis: SCD's and Thigh High SHELDON Hose VTE Pharm Prophylaxis ordered?: Yes
[2023-06-28] MEDS: JPS (Morphine 10mg/ml) OPERA.SITE (08:35)
--- NOTE | 2023-06-28 09:45 | RAD_ITS ---
STUDY: X-RAY - RIGHT KNEE REASON FOR EXAM: Male, 53 years old. TKA -- in PACU TECHNIQUE: 2 view(s) of the knee. COMPARISON: Comparison is made with prior study dated October 22, 2016. FINDINGS: Normal visualized distal femur. Normal visualized proximal tibia and fibula. Normal proximal tibiofibular articulation. The patient is status post right total knee replacement. There is good alignment. Postoperative soft tissue changes. RAD/Knee 1 or 2 Views IMPRESSION: Status post right total knee replacement. There is good alignment. Postoperative soft tissue changes. Electronically Signed: Silvestre Burgess MD at 14:05 EST ,
[2023-06-28] MEDS: Ketorolac 30 MG/ML Syringe IV (12:19)
[2023-06-28] MEDS: Cefazolin 1 GM/50 ML BAG IV (12:38)
== END 2023-06-28 14:00 | disposition home or self-care (01) ==
LOC: SDC 06:05 → AC 06:06
PROVIDERS: Anesthesiology; PCP Physician Assistant; Referring Provider Specialist; Visit Provider Specialist
PROC: 0SRC0JZ Replacement of Right Knee Joint with Synthetic Substitute, Open Approach (ICD-10-PCS; CPT 27447; principal; 2023-06-28 07:00)
DX: M17.11 Unilateral primary osteoarthritis, right knee (principal); F17.290 Nicotine dependence, other tobacco product, uncomplicated; Z79.82 Long term (current) use of aspirin
CPT/HCPCS: 27447; S2900; 01402; 36415; 73560; 80048; 82040; 82962; 83735; 85025; 87081; 88305; 88311; 97162; C1776; J7120; J2405; J3475

== ENCOUNTER → 2023-07-07 | Outpatient (CLI) | payer OTHER, MEDICAID, SELFPAY ==
--- NOTE | 2023-07-07 11:00 | VDLE_ITS ---
Reason For Study: RLE R/O DVT RIGHT GSV is normal. CFV is compressible, spontaneous, phasic, competent and demonstrates normal augmentation. FV is compressible, spontaneous, phasic, competent and demonstrates normal augmentation. POP V is compressible, spontaneous, phasic, competent and demonstrates normal augmentation. T/P Trunk is compressible. PTV is compressible. RT PerV is compressible. Procedure This is a venous duplex using B-mode, color flow and spectral Doppler. Exam performed in department. The exam was diagnostic. A preliminary report was called and/or faxed to Ella Gleason / Dr. Purcell. VL/Venous Duplex US, Unilateral Interpretation Summary There is no evidence of right lower extremity deep vein thrombosis. Right great saphenous vein appears patent and compressible segmentally. Ordering Physician: Kareem Purcell Referring Physician: Brian Rene Performed By: Piero Molina RVT
--- OUTSIDE RECORDS SUMMARY | 2023-07-07 11:23 | XMS RPT_ITS | CCD ---
Author Name Unknown Address [address] [place] [address] Organization [facility] Care Team Providers Care Chair Inspector Name Role Phone DOMINGA ADAIR Referring Unavailable ERIK ORTIZ Admitting Tabitha vailable DOUGLAS CHÁVEZ Consulting Unavai lable SYSTEM, PROVIDER NOT IN Primary Care Unavaila ble ERIK ORTIZ Attending Tabitha vailable System, Provider Not In Primary Care Provider Un available Patel Rene PA-C Primary Care Provider 1(10 [...] sources) Penicillin; Translations: [Unknown] Drug Allergy 9 [facility] (2 sources) Penicillins; Translations: [PENICILLINS] Propensity to adverse reactions 8 [facility] (7 sources) Penicillins Propensity to adverse reactions 8 [facility] Medications Current Medications Medication Drug Class(es) [...] or greater, headaches, Starting Mon01/08/19 at 1122 [id number] 200 actuat albuterol 0.09 mg/actuat metered dose [...] Time Vital Sign Value Performing Clinician Ky alvarez 06-13-2023 16:19-0500 Body weight 83.46 kg NA Rene PA-C Work Phone: [facility] 06-13-2023 16:19-0500 Diastolic blood pressure 60 mm[Hg] NA Rene PA-C Work Phone: [facility] 06-13-2023 16:19-0500 Heart rate 75 /min NA Rene PA-C Work Phone: [facility] 06-13-2023 16:19-0500 Respiratory rate 16 /min NA Rene PA-C Work Phone: [facility] 06-13-2023 16:19-0500 SaO2% (BldA) [Mass fraction] 95 % NA Rene PA-C Work Phone: [facility] 06-13-2023 16:19-0500 Systolic blood pressure 114 mm[Hg] NA Rene PA-C Work Phone: [facility] 12-29-2022 17:35-0400 Body height 179 cm NA Rene PA-C Work Phone: [facility] 12-29-2022 17:35-0400 Body weight 82.1 kg NA Rene PA-C Work Phone: [facility] 12-29-2022 17:35-0400 Diastolic blood pressure 62 mm[Hg] NA Rene PA-C Work Phone: [facility] 12-29-2022 17:35-0400 Heart rate 90 /min NA Rene PA-C Work Phone: [facility] 12-29-2022 17:35-0400 Respiratory rate 16 /min NA Rene PA-C Work Phone: [facility] 12-29-2022 17:35-0400 SaO2% (BldA) [Mass fraction] 96 % NA Rene PA-C Work Phone: [facility] 12-29-2022 17:35-0400 Systolic blood pressure 110 mm[Hg] NA Rene PA-C Work Phone: [facility] 08-23-2022 13:02-0500 Body weight 79.83 kg NA Rene PA-C Work Phone: [facility] 08-23-2022 13:02-0500 Diastolic blood pressure 62 mm[Hg] NA Rene PA-C Work Phone: [facility] 08-23-2022 13:02-0500 Heart rate 117 /min NA Rene PA-C Work Phone: [facility] 08-23-2022 13:02-0500 Respiratory rate 16 /min NA Rene PA-C Work Phone: [facility] 08-23-2022 13:02-0500 SaO2% (BldA) [Mass fraction] 96 % NA Rene PA-C Work Phone: [facility] 08-23-2022 13:02-0500 Systolic blood pressure 98 mm[Hg] NA Rene PA-C Work Phone: [facility] 07-26-2022 11:27-0500 Body weight 77.11 kg NA Rene PA-C Work Phone: [facility] 07-26-2022 11:27-0500 Diastolic blood pressure 60 mm[Hg] NA Rene PA-C Work Phone: [facility] 07-26-2022 11:27-0500 Heart rate 105 /min NA Rene PA-C Work Phone: [facility] 07-26-2022 11:27-0500 Respiratory rate 18 /min NA Rene PA-C Work Phone: [facility] 07-26-2022 11:27-0500 SaO2% (BldA) [Mass fraction] 99 % NA Rene PA-C Work Phone: [facility] 07-26-2022 11:27-0500 Systolic blood pressure 110 mm[Hg] NA Rene PA-C Work Phone: [facility] 12-14-2021 12:32-0400 Body temperature 97.59 [degF] Sharmaine Benavides PA-C Work Phone: [facility] 12-14-2021 12:32-0400 Body weight 79.83 kg Sharmaine Benavides PA-C Work Phone: [facility] 12-14-2021 12:32-0400 Diastolic blood pressure 80 mm[Hg] Sharmaine Benavides PA-C Work Phone: [facility] 12-14-2021 12:32-0400 Heart rate 84 /min Sharmaine Bneavides PA-C Work Phone: [facility] 12-14-2021 12:32-0400 Respiratory rate 16 /min Sharmaineguerda Benavides PA-C Work Phone: [facility] 12-14-2021 12:32-0400 Systolic blood pressure 102 mm[Hg] Sharmaine Benavides PA-C Work Phone: [facility] 01-09-2019 15:46-0400 Body Temperature 98.01 [degF] [facility] 01-09-2019 15:46-0400 BP Diastolic 74 mm[Hg] [facility] 01-09-2019 15:46-0400 BP Systolic 116 mm[Hg] [facility] 01-09-2019 15:46-0400 Pulse (Heart Rate) 68 /min [facility] 01-09-2019 15:46-0400 Pulse Oximetry 95 % [facility] 01-09-2019 15:46-0400 Respiratory Rate 16 /min [facility] 01-09-2019 04:20-0400 BMI (Body Mass Index) 24.52 kg/m2 [facility] 01-09-2019 04:20-0400 Body weight 77.5 kg Generic [facility] 01-08-2019 09:09-0400 Height 177.8 cm Generic [facility] Encounters Encounter Date Encounter Type Care Provider Facility Start: 06-21-2023 End: 06-22-2023 ambulatory Patel BRIANPRABHA RENE Facility:[facility] Start: 06-16-2023 Telephone encounter Patel [...] metabolic 2000 panel - Serum or Plasma Erikmina Ortiz Work Phone: Start: 01-09-2019 Lipase [Enzymatic [...] panel - Serum or Plasma NA Nura BRAVO-Cj Work Phone: Plan of Treatment Date Care Activity Detail Author Start: 12-29-2032 Urine microalbumin profile [facility] Start: 05-17-2024 DIABETES SCREEN DIABETES SCREEN [facility] Start: 05-17-2024 Diabetes Screening Diabetes Screenin g [facility] Start: 12-30-2023 SHINGRIX VACCINE (1 of 2) MORELAND GRIX VACCINE (1 of 2) [facility] Immunizations Immunization Date Immunization Notes Care Provider Chinyere mckeon 12-29-2022 tetanus toxoid, redu rita diphtheria toxoid, and acellular pertussis vaccine, adsorbed NA Edgard BRAVO-Cj Work Phone: [facility] Payers Date Payer Category Payer Medicaid [id number] 2021 Unknown [id number] 2021 Unknown [id number] 2021 Medicaid [facility] MEDICAID [facility] PLAN MEDICAID [id number] 2021-Present [phone] [address] [place] [address] Medicaid [id number] 2021 Medicaid [id number] 2021 Medicaid [id number] 2018 Medicaid [id number] 2018 Medicaid [facility] MEDICA[employer] MEDICA[employer] xxxxxxxxxxx 2018-Present xxxxxxxxxxx [id number] 1972 Unknown [id number] Social History Date Type Detail Facility Start: 01-09-2019 End: 07-26-2022 Tobacco smoking status NMIS Former smoker [facility] Sex Assigned At Not on file [facility] End: 08-11-2020 History of tobacco use Current smoker [facility] End: 08-11-2020 History of tobacco use Cigarette Smoker [facility] Start: 09-04-2020 End: 11-24-2022 Cigarettes smoked current (pack per day) - Reported 1.5 [facility] Start: 09-04-2020 End: 12-29-2022 Tobacco use and exposure Smokeless tobacco non-user [facility] Start: 12-14-2021 End: 06-13-2023 Alcohol intake Ex-drinker (finding) [facility] Start: 05-13-2020 End: 08-22-2022 History SDOH Alcohol Frequency 2 [facility] Start: 05-13-2020 End: 09-04-2020 History SDOH Alcohol Std Drinks 1 [facility] Start: 05-29-2015 History SDOH Alcohol Comment beer occasionally [facility] Start: 04-06-2020 End: 08-22-2022 History SDOH Social Connections Phone 5 [facility] Start: 04-06-2020 End: 08-22-2022 History SDOH Stress 3 [facility] Start: 04-06-2020 Education 21 [facility] Start: 12-14-2021 End: 07-26-2022 Tobacco Comment in the process of quiting smoking smokes 1/2 pack daily [facility] Start: 1970 Sex Assigned At Male [facility] Start: 12-04-2021 End: 12-14-2021 Exposure to SARS-CoV-2 (event) Not sure [facility] Start: 08-22-2022 History SDOH Alcohol Std Drinks 0 [facility] Start: 12-29-2022 Tobacco smoking stat us NMIS Smokes tobacco daily [facility] Start: 08-21-2022 End: 11-24-2022 Social connection and isolation panel [facility] Do you belong to any clubs or organizations such as hindu groups, unions, fraternal or athletic groups, or school groups? No [facility] Are you now , , , , never or living with a partner? [facility] How often to you hav e a drink containing alcohol? Never [facility] How many standard dr inks containing alcohol do you have on a typical day? Patient does not drink [facility] How hard is it for y ou to pay for the very basics like food, housing, medical care, and heating Somewhat hard [facility] Do you feel stress - tense, restless, nervous, or anxious, or unable to sleep at night because your mind is troubled all the time - these days [OSQ] To some extent [facility] (I/We) worried wheth er (my/our) food would run out before (I/we) got money to buy more. Never true [facility] Start: 05-11-2020 Gender identity Identifies as male gender (finding) [facility] Start: 05-11-2020 Sexual orientation Heterosexual (gurdeep kelsey) [facility] Clinical Notes 12-14-2021 to 06-16-2023 Telephone Encounter - Theresa Garcia Ma - 06/16/2023 9:05 AM ESTTelephone Encounter - Gissel Rodrigues RN - 06/16/2023 8:27 AM ESTPatient Patel Santo PA-C - 06/13/2023 4:00 PM EST Note Date & Type Note Facility 06-16-2023 Miscellaneous Notes Completed forms faxed Henny from [facility] calls and is asking about completed surgical clearance form. Please fax to [phone]. Gissel Rodrigues RN documented in this encounter [facility] 06-13-2023 Note HNO ID: [id number] Author: Mindi Hennessy RT(R) Service: ? Author Type: Community Program Assistant Type: Progress Notes Filed: 06/13/2023 5:17 PM [...] Alexus(R) June 13, 2023 5:17 PM [facility] 06-13-2023 Note HNO ID: [id number] Author: Patel Rene PA-C Service: ? Author Type: Physician Louver Mortiser Operator Type: Progress Notes Filed: 06/16/2023 6:37 PM [...] dialysis. No history of symptoms or problems. DENTURE CONTOUR WIRE SPECIALIST: Negative for abnormal vaginal bleeding, abnormal vaginal [...] HISTORY Diagnosis Date Depression since 1992 following poqnuod-tp-zuf Excessive caffeine abuse, continuous (HCC) 05/07/2021 Internal [...] pupils equal, (more content not included)... [facility] 06-13-2023 Instructions Patel Rene PA-C - 06/13/2023 5:03 PM EST Stop all over the counter medications or supplements 1 week prior to surgery unles told otherwise by your surgery team. documented in this encounter [facility] 06-13-2023 History of Presen t illness [...] dialysis. No history of symptoms or problems. DENTURE CONTOUR WIRE SPECIALIST: Negative for abnormal vaginal bleeding, abnormal vaginal [...] HISTORY Diagnosis Date Depression since 1992 following yudmjtc-ws-stw Excessive caffeine abuse, continuous (HCC) 05/07/2021 Internal [...] DATE: 06/12/2023 TIME: 6:23 AM PAGER/CONTACT #: [phone] documented in this encounter [facility] 06-05-2023 Miscellaneous Notes Noted nurse Keren @ [facility] calling with request that patient have an EKG done at his surgery clearance appointment on 06/13/23. He was unable to get it done @ [facility]. Malka Chan, RN documented in this encounter [facility] 12-29-2022 Note HNO ID: [id number] Author: Patel Rene PA-C Service: ? Author Type: Physician Louver Mortiser Operator Type: Progress Notes Filed: 12/29/2022 9:15 PM [...] HISTORY Diagnosis Date Depression since 1992 following iggrhll-ko-lqu Excessive caffeine abuse, continuous (HCC) 05/07/2021 Internal [...] none. Eyes: denies change in vision, glaucoma. [facility]: states told bilateral cataracts. wears/contacts. Last [...] use. . (more content not included)... [facility] 12-29-2022 History of Presen t illness Narrative [...] HISTORY Diagnosis Date Depression since 1992 following xytrpmj-ks-ynn Excessive caffeine abuse, continuous (HCC) 05/07/2021 Internal [...] Never done COVID-19 VACCINE(3 - Booster for Blackboard series) due on 02/12/2021 LUNG CANCER SCREENING [...] none. Eyes: denies change in vision, glaucoma. [facility]: states told bilateral cataracts. wears/contacts. Last [...] Patel Rene PA-C documented in this encounter [facility] 08-23-2022 Note HNO ID: [id number] Author: Patel Rene PA-C Service: ? Author Type: Physician Louver Mortiser Operator Type: Progress Notes Filed: 08/23/2022 2:11 PM [...] HISTORY Diagnosis Date Depression since 1992 following amazvdr-ux-mjz Excessive caffeine abuse, continuous (HCC) 05/07/2021 Internal [...] or comprehens (more content not included)... [facility] 08-23-2022 History of Presen t illness Narrative [...] HISTORY Diagnosis Date Depression since 1992 following qantpdi-xz-kap Excessive caffeine abuse, continuous (HCC) 05/07/2021 Internal [...] M21.821 S/p repair. Improving function, still painful. Patel Rene PA-C documented in this encounter [facility] 07-26-2022 Note HNO ID: [id number] Author: Patel Rene PA-C Service: ? Author Type: Physician Louver Mortiser Operator Type: Progress Notes Filed: 07/26/2022 1:05 PM [...] HISTORY Diagnosis Date Depression since 1992 following urdzmbi-qj-uky Excessive caffeine abuse, continuous (HCC) 05/07/2021 Internal [...] (ASPERCREME) 4 % topical spray Apply 1 Cosby to affected area every 8 hours as [...] none. Extremiti (more content not included)... [facility] 07-26-2022 History of Presen t illness Narrative [...] HISTORY Diagnosis Date Depression since 1992 following eqjcmzu-nt-hvd Excessive caffeine abuse, continuous (HCC) 05/07/2021 Internal [...] (ASPERCREME) 4 % topical spray Apply 1 Cosby to affected area every 8 hours as [...] context and comparison. documented in this encounter [facility] 03-15-2022 Miscellaneous Notes The following approved [...] Tiara Perla Ma documented in this encounter [facility] 12-14-2021 History of Presen t illness Narrative Chief Complaint Patient presents with: Derm Problem: sunburn bilateral ankles HPI Allen C Jenn CHARLTON is a 51 year old [...] HISTORY Diagnosis Date Depression since 1992 following ngmhcno-eu-lha Excessive caffeine abuse, continuous ([facility]) 05/07/2021 Internal derangement of right knee Previous [...] Sharmaine Benavides PA-C documented in this encounter [facility] Diagnosis Moderate episode of recurrent major depressive disorder (HCC)- Primary [facility] Diagnosis Moderate episode of recurrent major depressive disorder (HCC)- Primary Hyperglycemia Other abnormal glucose Excessive caffeine abuse, continuous (HCC) Other, mixed, or unspecified nondependent drug abuse, continuous Instability of right shoulder joint Other joint derangement, not elsewhere classified, shoulder region Hill Sachs deformity, right [facility] Diagnosis Excessive caffeine abuse, continuous [...] warts Condyloma acuminatum [facility] Diagnosis Preoperative clearance- Primary Preoperative examination, unspecified Leukocytosis, unspecified type [facility] (narrative)* Outpatient Procedure (Routine) - Pending Review Specialty Diagnoses / Procedures Referred By Lucio t Referred To [facility] Diagnoses Preoperative clearance Procedures ECG COMPLETE ECG ROUTINE ECG W/LEAST 12 LDS W/I&R Patel Rene PA-C [address] [place] [address] [facility] [place] [facility] [place] [address] Referral ID Status Reason Start Date Expiration Date Visits Requested Visits Authorized [id number] Pending Review Auto-Generat ed Referral 06/13/2023 06/12/2024 1 1 [facility] Summary Purpose Family History No Family History Records FoundNo Family History Records FoundNo Family History Records FoundNo Family History Records Found Advance Directives No Advanced Directives Records FoundDocuments on File Type Date Recorded 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 Etiology uncertain. -CT abdomen pelvis at [facility] revealed small sludge in the gallbladder but [...] or pericholecystic fluid. No biliary ductal dilatation. Tumblr/One Touch EMR Workstation ID: [id number] Procedures No orders of [...] Phone: None, Address: None Follow Up: Douglas Chávez DO [address] [place] [address] Follow up in 2 week(s) Abdominal pain [...] ojeda Referred To Contact Sharmaine Benavides PA-C [address] [place] [address] Referral ID Status Reason Start Date Expiration Date Visits Re quested Visits Authorized [id number] Closed 1 1 Specialty Diagnoses / Procedures Referred By Lucio ojeda Referred To Contact General Surgery Diagnoses Screening for colon cancer Procedures CONSULT TO GENERAL SURGERY OFFICE/OUTPATIENT [facility] 60-74 MINUTES Patel Rene PA-C [address] [place] [address] Referral ID Status Reason Start Date Expiration Date Visits Requested Visits Authorized [id number] Authorized PCP Requested Referral 12/29/2022 12/29/2023 1 1 Additional Source Comments (unrecognized sect ion and content) No Status Records FoundNo Status Records FoundNo Status Records FoundNo Status Records Found INFORMATION SOURCE (unrecogn ized section and content) DATE CREATED AUTHOR AUTHOR'S ORGANIZ ATION 03/06/2019 [facility] DATE CREATED AUTHOR AUTHOR'S ORGANIZ ATION 05/04/2021 [facility] ([place]) DATE CREATED AUTHOR AUTHOR'S ORGANIZ ATION 06/28/2023 [facility] Reason for Visit (unrecogniz ed section and [...] Allen Dye Admit Date: [id number] MR #: [id number] : 1970 The H&P has been reviewed and the patient has been examined. I concur with the findings of the H&P. There are no significant changes. It is appropriate to proceed with the planned procedure. Douglas Chávez DO 01/09/2019 6:32 AM CONSULT NOTE Patient Name: Allen Dye Admit Date: [id number] MR #: [id number] : 1970 Physicians: Provider Not in System [...] file Gets together: Not on file Attends yarsanism service: Not on file Active member of [...] 8:58 PM Normal lipase and amylase at [facility]. Allen Perez #[id number] (CSN:[id number]) (48 y.o. M) (Adm: 01/08/19) [facility] SURG 2N-261-B Results Procedure Component Value Units Date/Time Troponin [[id number]] Collected: 01/08/19 1838 Specimen: Blood Updated: 01/08/19 1925 Troponin I <15 ng/L Interp Troponin I Delta Change No biomarker evidence of cardiac injury. Urinalysis [[id number]] (Abnormal) Collected: 01/08/19 1540 Specimen: Urine Updated: 01/08/19 1554 Color, Urine Yellow Clarity, Urine Clear Specific Jasper 1.009 pH, Urine 8.0High Protein, Urine Negative [...] they are quantified by microscopic examination. Troponin [[id number]] Collected: 01/08/19 1512 Specimen: Blood Updated: 01/08/19 1542 Troponin I <15 ng/L Interp Troponin I Delta Change No biomarker evidence of cardiac injury. Lactic Acid, Plasma [[id number]] (Normal) Collected: 01/08/19 114 Specimen: Blood Updated: 01/08/19 1218 Lactic Acid 1.4 mmol/L Troponin [[id number]] Collected: 01/08/19 114 Specimen: Blood Updated: 01/08/19 1217 Troponin I <15 ng/L Troponin I Interpretation Normal Comprehensive Metabolic Panel [[id number]] (Abnormal) Collected: 01/08/19 114 Specimen: Blood Updated: [...] not for medication dosing. CBC and Differential [[id number]] Collected: 01/08/191144 Specimen: Blood Updated: 01/08/19 115 Narrative: The following orders were created for panel order CBC and Differential. Procedure Abnormality Status --------- ------ CBC Auto Differential[[id number]] Abnormal Final result Please view results for these tests on the individual orders. CBC Auto Differential [[id number]] (Abnormal) Collected: 01/08/191144 Specimen: Blood Updated: 01/08/19 [...] Component Value Units Date/Time Urine Aerobic Culture [[id number]] Collected: 01/08/19 1540 Order Status: Sent Specimen: Urine, Clean Catch Updated: 01/08/19 1540 Radiology 01/08/19 8:[address] report from [facility] reviewed. Possible ulcer in the stomach and thickening of esophagus. Medications 01/08/19 8:58 PM Transcriptions 01/08/19 8:58 PM HISTORY AND PHYSICAL Patient Name: Allen Perez Admit Date: 7010718 MR #: [id number] : 1970 Physicians: No primary care provider on file. (Family); Dominga Adair MD (Referring) Chief Complaint/Reason for Visit: Abdominal pain History of Present Illness: Allen Perez is a 48 y.o. male presenting from [facility] with above c/o. Patient presented here as a direct admission from [facility]. He was brought to [facility] from local long term where he was incarcerated, now he is [...] any urinary symptoms. He was evaluated at [facility]. CBC-mildly elevated white cell count 15.2. [...] file Gets together: Not on file Attends yarsanism service: Not on file Active member of [...] region. Etiology uncertain. -CT abdomen pelvis at [facility] revealed small sludge in the gallbladder but [...] Allen Perez Admit Date: [id number] MR #: [id number] : 1970 Physicians: Provider Not in System [...] file Gets together: Not on file Attends yarsanism service: Not on file Active member of [...] 8:58 PM Normal lipase and amylase at [facility]. Allen Perez #[id number] (CSN:[id number]) (48 y.o. M) (Adm: 01/08/19) [facility] 2N-261-B Results Procedure Component Value Units Date/Time Troponin [[id number]] Collected: 01/08/19 1838 Specimen: Blood Updated: 01/08/19 1925 Troponin I <15 ng/L Interp Troponin I Delta Change No biomarker evidence of cardiac injury. Urinalysis [[id number]] (Abnormal) Collected: 01/08/19 1540 Specimen: Urine Updated: 01/08/19 1554 Color, Urine Yellow Clarity, Urine Clear Specific Jasper 1.009 pH, Urine 8.0High Protein, Urine Negative [...] they are quantified by microscopic examination. Troponin [[id number]] Collected: 01/08/19 1512 Specimen: Blood Updated: 01/08/19 1542 Troponin I <15 ng/L Interp Troponin I Delta Change No biomarker evidence of cardiac injury. Lactic Acid, Plasma [[id number]] (Normal) Collected: 01/08/19 114 Specimen: Blood Updated: 01/08/19 1218 Lactic Acid 1.4 mmol/L Troponin [[id number]] Collected: 01/08/19 114 Specimen: Blood Updated: 01/08/19 1217 Troponin I <15 ng/L Troponin I Interpretation Normal Comprehensive Metabolic Panel [[id number]] (Abnormal) Collected: 01/08/19 114 Specimen: Blood Updated: [...] not for medication dosing. CBC and Differential [[id number]] Collected: 01/08/19 114 Specimen: Blood Updated: 01/08/19 1155 Narrative: The following orders were created for panel order CBC and Differential. Procedure Abnormality Status --------- ------ CBC Auto Differential[[id number]] Abnormal Final result Please view results for these tests on the individual orders. CBC Auto Differential [[id number]] (Abnormal) Collected: 01/08/19 1145 Specimen: Blood Updated: [...] Component Value Units Date/Time Urine Aerobic Culture [[id number]] Collected: 01/08/19 1540 Order Status: Sent Specimen: Urine, Clean Catch Updated: 01/08/19 1540 Radiology 01/08/19 8:[address] report from [facility] reviewed. Possible ulcer in the stomach and thickening of esophagus. Medications 01/08/19 8:58 PM Transcriptions 01/08/19 8:58 PM documented in this encounter Hellen Arango RN - 01/09/2019 3:05 PM EDT Nursing Notes (unrecognized section and content) [id number] All vital signs and medications will be [...] Date of Service: 01/08/2019 - 01/09/2019 CSN: [id number] Procedure(s): ESOPHAGOGASTRODUODENOSCOPY Pre-Operative Diagnoses: * Abdominal pain Post-Operative Diagnoses: * Hematemesis with nausea [K92.0] * Right upper quadrant abdominal pain [R10.11] * Epigastric pain [R10.13] Surgeon(s) and Role: * Douglas Chávez DO - Primary ACCOUNTING ADMINISTRATIVE ASSISTANT: Esau Sewell CRNA Cv Rn: Kiley Hoskins LPN Endoscopy Nurse: Hellen Arango [...] or prosecute any alcohol or drug abuse patient.[facility] the event this information is protected by the Federal Confidentiality of Alcohol and Drug Abuse Patient Records regulations: The Federal rules restrict any use of the information to criminally investigate or prosecute any alcohol or drug abuse patient.[facility] the event this information is protected by the Federal Confidentiality of Alcohol and Drug Abuse Patient Records regulations: The Federal rules restrict any use of the information to criminally investigate or prosecute any alcohol or drug abuse patient.[facility] the event this information is protected by the Federal Confidentiality of Alcohol and Drug Abuse Patient Records regulations: The Federal rules restrict any use of the information to criminally investigate or prosecute any alcohol or drug abuse patient.[facility] the event this information is protected by the Federal Confidentiality of Alcohol and Drug Abuse Patient Records regulations: The Federal rules restrict any use of the information to criminally investigate or prosecute any alcohol or drug abuse patient.[facility] the event this information is protected by the Federal Confidentiality of Alcohol and Drug Abuse Patient Records regulations: The Federal rules restrict any use of the information to criminally investigate or prosecute any alcohol or drug abuse patient.[facility] the event this information is protected by the Federal Confidentiality of Alcohol and Drug Abuse Patient Records regulations: The Federal rules restrict any use of the information to criminally investigate or prosecute any alcohol or drug abuse patient.[facility] the event this information is protected by the Federal Confidentiality of Alcohol and Drug Abuse Patient Records regulations: The Federal rules restrict any use of the information to criminally investigate or prosecute any alcohol or drug abuse patient.[facility] Care Teams (unrecognized sec tion and content) Chair Inspector Relationship Specialty Start Date End Date Patel Rene PA-C [address] [place] [address] PCP - General Family Practice 10/31/16 Chair Inspector Relationship Specialty Start Date End Date Patel Rene PA-C [address] [place] [address] PCP - General Family Medicine 10/31/16 Chair Inspector Relationship Specialty Start Date End Date Patel Rene PA-C [address] [place] [address] PCP - General Family Medicine 10/31/16 Chair Inspector Relationship Specialty Start Date End Date Patel Rene PA-C [address] [place] [address] PCP - General Family Medicine 10/31/16 Chair Inspector Relationship Specialty Start Date End Date Patel Rene PA-C [address] [place] [address] PCP - General Family Medicine 10/31/16 Chair Inspector Relationship Specialty Start Date End Date Patel Rene PA-C [address] [place] [address] PCP - General Family Medicine 10/31/16 FOR [...] BE BASED ON THE PRIMARY CLINICAL RECORDS. [facility]. provides no warranty or guarantee of the accuracy or completeness of information in this document.
== END | disposition home or self-care (01) ==
LOC: CVS 10:56
PROVIDERS: PCP Physician Assistant; Referring Provider Specialist; Visit Provider Specialist
DX: M79.604 Pain in right leg (principal); Z96.651 Presence of right artificial knee joint
CPT/HCPCS: 93971